=== PATIENT | female | born 1960 | race Caucasian/White ===

== ENCOUNTER 2020-09-23 11:31 | Outpatient (REF) | payer OTHER, SELFPAY ==
--- NOTE | 2020-09-23 11:35 | MM_ITS ---
EXAMINATION: MM DIAGNOSTIC DIGITAL BREAST TOMOSYNTHESIS, RIGHT CLINICAL INFORMATION: Short interval six-month follow-up probable benign round calcifications mid outer right breast. The lifetime risk of breast cancer based on the Tyrer-Cuzick Model is 7%. COMPARISON: Mammography: 03/25/2020, 03/06/2020 (BI-RADS 0), 10/21/2018, 10/15/2017, 03/19/2016 TECHNIQUE: Digital breast tomosynthesis is performed in the craniocaudal view x 2 along with computer-aided detection (CAD). Synthesized 2D images are generated from the tomosynthesis. Digital breast tomosynthesis is performed in the right MLO view. Magnification views are obtained in the CC and ML views. FINDINGS: There are scattered areas of fibroglandular density (ACR BI-RADS breast composition Category b). Parenchymal pattern is similar to prior exams. There is no interval mass or architectural abnormality. Fine calcifications for follow-up mid outer right breast are stable from prior diagnostic exam and likely stable from standard right MLO view from 2015. Right breast calcifications will be reassessed again at time of annual bilateral mammography, due in 6 months. Results are provided to the patient at time of visit by the technologist. MM/MM tomosynthesis diagnostic RT IMPRESSION: Right breast calcifications mid outer quadrant without significant change from prior diagnostic exam, and possibly chronic. ASSESSMENT: BI-RADS 3: Probably Benign RECOMMENDATION: Diagnostic mammography at time of bilateral annual mammography, due in 6 months. This patient's information was entered into a reminder system with a target due date for their next mammogram.
== END 2020-09-23 11:32 | disposition home or self-care (01) ==
LOC: HO.MAMMO 11:31
PROVIDERS: PCP Internal Medicine; Visit Provider Internal Medicine
DX: R92.1 Mammographic calcification found on diagnostic imaging of breast (principal)
CPT/HCPCS: 77061; 77065

== ENCOUNTER 2020-11-07 15:04 | Outpatient (REF) | payer OTHER, SELFPAY | END 2020-11-07 15:05 | disposition home or self-care (01) | LOC: HO.LNP 15:04 | PROVIDERS: Visit Provider Hospitalist | DX: R31.0 Gross hematuria (principal) | CPT/HCPCS: 87086; 87491; 87591 ==

== ENCOUNTER 2021-03-10 15:01 | Outpatient (REF) | payer OTHER, SELFPAY ==
--- NOTE | ~2021-03-10 | MM_ITS ---
EXAMINATION: MM DIAGNOSTIC DIGITAL BREAST TOMOSYNTHESIS, BILATERAL CLINICAL INFORMATION: Six-month follow-up right breast calcifications with yearly left breast study. The lifetime risk of breast cancer based on the Tyrer-Cuzick Model is 6.6%. COMPARISON: Mammography: September 23, 2020 and studies dating back to February 19, 2012 TECHNIQUE: Digital breast tomosynthesis is performed in both the craniocaudal and mediolateral oblique views along with computer-aided detection (CAD). Synthesized 2D images are generated from the tomosynthesis. Additional spot magnification films of the right breast in craniocaudal and 90 degree mediolateral views performed. FINDINGS: There are scattered areas of fibroglandular density (ACR BI-RADS breast composition Category b). No new abnormal dominant mass is identified. No new more suspicious grouping of microcalcifications is identified. There are stable-appearing calcifications about the upper outer aspect of the right breast for which 12 month follow-up bilateral study with right magnification views are recommended. Results are provided to the patient at time of visit by the technologist. MM/MM tomosynthesis diagnostic RT IMPRESSION: There are no significant changes from prior study. ASSESSMENT: BI-RADS 3: Probably Benign RECOMMENDATION: Diagnostic mammography at time of next annual exam, due in 12 months. This patient's information was entered into a reminder system with a target due date for their next mammogram.
== END 2021-03-10 15:02 | disposition home or self-care (01) ==
LOC: HO.MAMMO 15:01
PROVIDERS: Visit Provider Internal Medicine
DX: R92.1 Mammographic calcification found on diagnostic imaging of breast (principal)
CPT/HCPCS: 77061; 77065

== ENCOUNTER 2021-05-28 14:42 | Outpatient (REF) | payer OTHER, SELFPAY | END 2021-05-28 14:43 | disposition home or self-care (01) | LOC: HO.LAB 14:42 | PROVIDERS: Visit Provider Internal Medicine | DX: Z20.822 Contact with and (suspected) exposure to COVID-19 (principal) | CPT/HCPCS: C9803; U0003; U0005 ==

== ENCOUNTER 2021-07-14 08:57 | Outpatient (REF) | payer OTHER, SELFPAY | END 2021-07-14 08:58 | disposition home or self-care (01) | LOC: HO.LAB 08:57 | PROVIDERS: Visit Provider Internal Medicine | DX: Z20.822 Contact with and (suspected) exposure to COVID-19 (principal) | CPT/HCPCS: C9803; U0003; U0005 ==

== ENCOUNTER → 2021-09-10 09:08 | Outpatient (REF) | payer OTHER, SELFPAY | LOC: HO.SL 09:08 | PROVIDERS: PCP Internal Medicine; Visit Provider Internal Medicine | DX: G47.9 Sleep disorder, unspecified (principal); R06.83 Snoring | CPT/HCPCS: 95806 ==

== ENCOUNTER → 2021-11-04 09:48 | Outpatient (BNVA) | payer OTHER, SELFPAY | PROVIDERS: PCP Internal Medicine; Referring Provider Internal Medicine; Visit Provider Psychiatry & Neurology Neurology ==

== ENCOUNTER 2022-03-09 12:12 | Outpatient (REF) | payer OTHER, SELFPAY ==
--- NOTE | ~2022-03-09 | MM_ITS ---
EXAMINATION: MM DIAGNOSTIC DIGITAL BREAST TOMOSYNTHESIS, BILATERAL CLINICAL INFORMATION: Due for yearly. Also follow-up probable fine round benign calcifications central outer 9:00 right breast The lifetime risk of breast cancer based on the Tyrer-Cuzick Model is 9%. COMPARISON: Mammography: 03/10/2021, 09/23/2020, 03/25/2020, 03/06/2020 (BI-RADS 0), 10/21/2018 TECHNIQUE: Digital breast tomosynthesis is performed in both the craniocaudal and mediolateral oblique views along with computer-aided detection (CAD). Synthesized 2D images are generated from the tomosynthesis. Additional magnification right CC and magnification right ML views are obtained. FINDINGS: There are scattered areas of fibroglandular density (ACR BI-RADS breast composition Category b). Parenchymal pattern is similar to prior exams and there is no interval mass or architectural abnormality or developing density. There is biopsy clip marker again seen anterior upper left breast with some stable punctate calcifications mid and posterior upper outer left breast. There is a biopsy clip marker anterior lower inner right breast. The axilla and skin contours are unremarkable. Right breast calcifications for follow-up are stable from prior diagnostic studies. No increasing calcifications or interval pleomorphic types or ductal distribution. The calcifications are now considered to be benign. Results are provided to the patient at time of visit by the technologist. MM/MM tomosynthesis diagnostic BI IMPRESSION: -No mammographic evidence of malignancy. -Right breast calcifications for follow-up are stable from prior diagnostic exams and now considered to be benign. ASSESSMENT: BI-RADS 2: Benign RECOMMENDATION: Routine annual mammography screening. This patient's information was entered into a reminder system with a target due date for their next mammogram.
== END 2022-03-09 12:13 | disposition home or self-care (01) ==
LOC: HO.MAMMO 12:12
PROVIDERS: Visit Provider Internal Medicine
DX: R92.2 Inconclusive mammogram (principal)
CPT/HCPCS: 77062; 77066

== ENCOUNTER 2022-08-05 10:01 | Outpatient (REF) | payer OTHER, SELFPAY ==
--- NOTE | ~2022-08-05 | XR_ITS ---
EXAMINATION: XR FOOT, RIGHT CLINICAL INFORMATION: Pain. COMPARISON: None TECHNIQUE: AP, lateral, and oblique views of the right foot. FINDINGS: There is no visible acute fracture, dislocation or subluxation. No bony erosive changes. There is a small retrocalcaneal enthesophyte. The soft tissues are normal. XR/XR foot RT min 3V IMPRESSION: Small retrocalcaneal enthesophyte. No visible acute fracture, dislocation or subluxation is seen.
== END 2022-08-05 10:02 | disposition home or self-care (01) ==
LOC: HO.XRAY 10:01
PROVIDERS: PCP Internal Medicine; Visit Provider Nurse Practitioner Family
DX: M79.671 Pain in right foot (principal)
CPT/HCPCS: 73630

== ENCOUNTER 2023-02-01 09:08 | Outpatient (REF) | payer OTHER, SELFPAY ==
--- NOTE | ~2023-02-01 | XR_ITS ---
EXAMINATION: XR FOOT, RIGHT CLINICAL INFORMATION: Right foot pain. COMPARISON: 08/05/2022 right foot radiographs. TECHNIQUE: AP, lateral, and oblique views of the right foot. FINDINGS: There is no acute fracture or dislocation. The tarsal bones are normally aligned. There is a small retrocalcaneal spur with mild distal Achilles enthesopathy. The soft tissues are unremarkable. XR/XR foot RT 2V IMPRESSION: Small degenerative retrocalcaneal spur and mild distal Achilles enthesopathy. No acute abnormality.
== END 2023-02-01 09:09 | disposition home or self-care (01) ==
LOC: HO.XRAY 09:08
PROVIDERS: PCP Internal Medicine; Visit Provider Internal Medicine
DX: M79.671 Pain in right foot (principal)
CPT/HCPCS: 73620

== ENCOUNTER 2023-06-29 09:59 | Outpatient (AMB) | payer OTHER, SELFPAY ==
--- NOTE | 2023-06-29 10:44 | AM.OFFWIN_ITS ---
Intake Vital Signs 06/29/23 10:45 Height 5 ft Weight 126 lb 2 oz BMI 24.6 BP 138/78 Blood Pressure Location Lt brachial Position Sitting Pulse 78 Pulse Source Pulse Oximeter Temp 98.6 F Temp Source Temporal Artery Scan Pulse Oximetry (%) 97 Intake Visit Reasons: EP Cough (masked) Intake Note: pt is here for c/o cough 3x weeks, chest congestion Patient Tobacco Use Status: Former Tobacco user Allergies codeine Allergy (Unknown, Verified 06/29/23 10:44) vomitting Do you need a note to return to daycare/school/sports/work: Yes HPI HPI Comments History of Present Illness Details This is a 63-year-old female with a past medical history of migraine headaches presenting for evaluation of a cough that she has had for the past 3 weeks. Patient states that her cough is dry and worse at night time. Patient denies having any fevers, chills, ear pain, sore throat, shortness of breath or chest pain. Patient tested herself for COVID-19 at home and the test was negative. Patient has been taking TheraFlu without relief of her cough. [facility] Medical History Sleep disturbance Snoring Immunization history incomplete Physical exam Insomnia Restless leg syndrome Migraines Surgical History H/O: No pertinent past surgical history Family History Father Diabetes Mother Diabetes Hypertension Brother In good health Sister In good health Son In good health Daughter In good health Social History Household Members: Significant Other Housing: House Alcohol intake: current Alcohol intake frequency: holidays/special occasions only Patient Tobacco Use Status: Former Tobacco user e-Cigarette/Vaping Use: Never Used Second Hand Smoke Exposure: No service: No Current occupational status: 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: No Hearing needs: No Vision needs: No Review of Systems Const Denies chills, Denies fatigue, Denies fever(s), Denies malaise and Denies night sweats Eyes Reports no additional complaints ENT Reports no additional complaints, Denies facial pain, Denies sinus pressure, De nies sore throat, Denies throat swelling and Denies tongue swelling Card Denies dyspnea Resp Reports no additional complaints, Reports cough, Denies hemoptysis, Denies dyspnea and Denies wheezing Endo Denies fatigue Aller/Immun Denies throat swelling, Denies tongue swelling and Denies wheezing Physical Exam Vital Signs: Last Vital Signs Temp 98.6 F 06/29/23 10:45 Pulse 78 06/29/23 10:45 BP 138/78 06/29/23 10:45 Pulse Ox 97 06/29/23 10:45 BMI result Body Mass Index 24.6 Const General: cooperative, healthy appearing, comfortable, no acute distress, awake and Physically active; No ill appearing Nutritional Appearance: average body habitus Orientation/consciousness: patient oriented x3 Limitations: no limitations HEENT Head: Yes normal to inspection Ears: hearing grossly normal bilaterally and TM abnormal bulging bilateral; not erythematous and not perforated General nose exam: Normal external nose present Face and sinus: Yes normal facial exam Mouth: Normal oral and palatal mucosa present and oropharynx normal Throat: Yes uvula midline and Yes postnasal drainage Eyes Conjunctivae: conjunctival abnormal bilateral conjunctival injection Sclerae: sclerae normal Neck Lymphatic: no lymphadenopathy noted Resp Effort & Inspection: normal respiratory effort, no audible wheezes, no cough, no respiratory distress and no stridor Auscultation: clear to auscultation bilaterally Cardio Rate: regular rate Rhythm: regular rhythm Skin General skin exam: no rashes or lesions noted Neuro General: patient oriented x3 Psych Appearance: grossly normal Mental Status: mental status grossly normal Insight: Good insight present (Psych) Judgement: Good judgement present (Psych) Assessment & Plan Assessment & Plan (1) Persistent dry cough: Code(s): R05.3 - Chronic cough Plan: Given that the patient's lungs are clear to auscultation bilaterally and the patient's vital signs are within normal limits, I do not feel that chest imaging is warranted at this time. Patient will be discharged and instructed to use loratadine once daily for the next 10-14 days for her symptoms and follow up with her primary care provider within 7 days if her symptoms are not improving. Coding Level of Care Code New Pt Level 3 (88240) Diagnoses Persistent dry cough R05.3 Time Spent (min) 20
[2023-06-29 10:45] VITALS: BP 138/78; PULSE 78; TEMP 37; O2SAT 97; BMI 24.6
== END 2023-06-29 11:26 | disposition home or self-care (01) ==
PROVIDERS: PCP Internal Medicine; Visit Provider Physician Assistant
DX: R05.3 Chronic cough (principal)
CPT/HCPCS: 99203

== ENCOUNTER 2023-08-02 16:46 | Outpatient (AMB) | payer OTHER, SELFPAY ==
[2023-08-02 16:55] VITALS: BP 114/82; BMI 24.6
--- NOTE | 2023-08-02 16:55 | A.OFFPC_ITS ---
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 Accompanied by: Self / Same As Patient Allergies codeine Allergy (Unknown, Verified 08/02/23 17:25) vomitting Medication List - Last Reconciled 08/02/23 by Nargis Sebastian MD acetaminophen ER 650 mg PO Q8H PRN amitriptyline 25 mg PO BEDTIME [id number] 50-325-40 mg 1 tab PO Q6H PRN 30 days ropinirole 0.5 mg PO BEDTIME Tobacco use date assessed: 02/01/23 Dental Screening Dental Screen Date: 08/02/23 Did you have a dental visit in the last 12 months?: Yes Did you have a dental problem in the last 6 months where you did not have access to dental care?: No Was dental information given to patient?: Patient has dentist HPI HPI Comments History of Present Illness Details This is a 63-year-old female that comes for her physical exam. Last colonoscopy was 2010 and will be refer through open access. Was referred to OBGYN for Pap smears since last Pap smear was 2013. Needs a mammogram and will call for an appointment. No chest pain or shortness of breath. PFSH Medical History Sleep disturbance Snoring Immunization history incomplete Physical exam Insomnia Restless leg syndrome Migraines Surgical History (Updated 08/02/23 @ 17:29 by Nargis Sebastian MD) H/O abdominoplasty H/O: Family History (Updated 08/02/23 @ 17:30 by Nargis Sebastian MD) Father Diabetes Mother Diabetes Hypertension Dementia Brother In good health Sister In good health Son In good health Daughter In good health Social History Household Members: Significant Other Housing: House Alcohol intake: current Alcohol intake frequency: holidays/special occasions only Patient Tobacco Use Status: Former Tobacco user e-Cigarette/Vaping Use: Never Used Second Hand Smoke Exposure: No service: No Current occupational status: 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: No Hearing needs: No Vision needs: No Questionnaire Thrive Questionnaire Date Thrive assessed: 08/05/22 FRANCO-7 AMB Questionnaire FRANCO-7 Date FRANCO - 7 assessed: 02/01/23 Source: Developed by Drs. Enrrique Godinez, Lisbeth Dai, Matias Arciniega and colleagues, with an educational cande from [employer]. Review of Systems Const All systems reviewed & are unremarkable except as noted in HPI and below Eyes Reports no additional complaints, Denies change in vision and Denies other visual disturbances Card Denies chest pain at rest, Denies chest pain with activity, Denies edema, Denies irregular heart rhythm, Denies claudication, Denies dyspnea, Denies dyspnea on exertion, Denies orthopnea, Denies paroxysmal nocturnal dyspnea and Denies slow heart rate Resp Denies cough, Denies dyspnea and Denies dyspnea on exertion GI Denies abdominal pain, Denies change in bowel habits, Denies excessive flatus, Denies nausea and Denies vomiting Denies urinary incontinence, Denies urinary hesitancy and Denies urinary urgency Musc Denies abnormal gait, Denies atrophy, Denies deformity and Denies limited range of motion Skin/Breast Denies bleeding lesions, Denies changing lesions and Denies rash Neuro Denies abnormal gait and Denies lack of coordination Physical exam (Primary Care) Vital Signs: Last Vital Signs BP 114/82 08/02/23 16:55 BMI result Body Mass Index 24.6 Tobacco/Smoking Status: Tobacco use Status Tobacco use date assessed 02/01/23 08/02/23 17:02 Patient Tobacco Use Status Former Tobacco user 08/02/23 17:02 e-Cigarette/Vaping Use Never Used 08/02/23 17:02 Thrive Assessment: Date of Thrive Assessment Date Thrive assessed 08/05/22 08/02/23 17:02 Const Orientation/consciousness: patient oriented x3 HENMT Head: Yes normal to inspection, Yes normocephalic and Yes atraumatic Ears: external ears normal Eyes General: appearance normal, both eyes and all related structures Eyelids: Yes eyelids normal Conjunctivae: conjunctivae normal Neck Neck: Yes normal visual inspection and Yes supple Resp Effort & Inspection: normal respiratory effort Auscultation: clear to auscultation bilaterally Cardio Jugular venous distension: no JVD Rate: regular rate Rhythm: regular rhythm Heart sounds: S1 normal heart sound present and S2 normal heart sound present GI Inspection: Yes normal to inspection Palpation (GI): Soft to palpation and nontender Auscultation: normal bowel sounds Skin General skin exam: no rashes or lesions noted Neuro General: patient oriented x3 and no focal motor deficits Extrem General: Yes full ROM Psych Appearance: grossly normal Office Procedures Flu Questionnaire Does the patient have a severe egg allergy?: No Immunizations flu vacc [id number] 6mos up(PF) 60 mcg(15 mcgx4)/0.5 mL IM syringe Performing Provider: Nargis Sebastian MD Performing Location: [facility] Documented (not given) by: ERIC Hernandez on 08/02/23 17:39 Reason Not Given: Patient Refused Assessment and Plan Assessment & Plan (1) Physical exam: Code(s): Z00.00 - Encounter for general adult medical examination without abnormal findings Plan: Repeat in a year. Orders: Orders Lipid Panel Today Z00.00 - Encounter for general adult medical examination wi thout abnormal findings Comprehensive [place]. Panel Fast Today Z00.00 - Encounter for general adult medical examination without abnormal findings Influenza [id number] Immunization Today Z23 - Encounter for immunization Referrals Open Access Screening Colonoscopy Referral Z12.11 - Encounter for screening for malignant neoplasm of colon Coding Level of Care Code Est Pt Prev Care 40-64y(82112) Diagnoses Physical exam Z00.00 Time Spent (min) 31
== END 2023-08-02 17:35 | disposition home or self-care (01) ==
PROVIDERS: Visit Provider Internal Medicine
DX: Z00.00 Encounter for general adult medical examination without abnormal findings (principal)
CPT/HCPCS: 99396

== ENCOUNTER 2023-08-20 07:18 | Outpatient (REF) | payer OTHER, SELFPAY ==
[2023-08-20 08:40] LABS: Alanine Aminotransferase 18 U/L (0-31); Alkaline Phosphatase 128 U/L (39-117); Anion Gap 10 (12-20); Aspartate Amino Transferase 16 U/L (5-31); Bilirubin Total 0.3 mg/dL (0.0-1.0); Blood Urea Nitrogen 20 mg/dL (9-16); Calcium 9.4 mg/dL (8.4-10.2); Carbon Dioxide 28 mmol/L (22-29); Chloride 109 mmol/L (96-108); Cholesterol 221 mg/dL (<200); Estimated Glomerular Filt Rate > 60; Glucose Fasting 97 mg/dL (60-99); HDL Cholesterol 61 mg/dL (>40); LDL Cholesterol Calculated 140 mg/dL (<100); Potassium 4.3 mmol/L (3.3-5.1); Sodium 143 mmol/L (135-145); Total Protein 7.4 g/dL (6.5-8.0); Triglycerides 102 mg/dL (<150)
== END 2023-08-20 07:19 | disposition home or self-care (01) ==
LOC: HO.LAB 07:18
PROVIDERS: PCP Internal Medicine; Visit Provider Internal Medicine
DX: Z00.00 Encounter for general adult medical examination without abnormal findings (principal)
CPT/HCPCS: 36415; 80053; 80061

== ENCOUNTER 2023-11-05 08:21 | Outpatient (REF) | payer OTHER, SELFPAY ==
[2023-11-05 10:56] LABS: HBc Num1 0.08 S/CO (0.00-0.79); HIV Num 1 0.07 S/CO (0.00-0.99); Hepatitis B Core Antibody Nonreactive (Nonreactive); ~HepC Num1 0.09 S/CO (0.00-0.79); ~Hepatitis C Antibody Nonreactive (Nonreactive)
[2023-11-05 10:57] LABS: HIV AB/AG Nonreactive (Nonreactive); Syphilis Screen Nonreactive (Nonreactive)
== END 2023-11-05 08:22 | disposition home or self-care (01) ==
LOC: HO.LAB 08:21
PROVIDERS: PCP Internal Medicine; Visit Provider Advanced Practice Midwife
DX: Z01.419 Encounter for gynecological examination (general) (routine) without abnormal findings (principal); Z11.4 Encounter for screening for human immunodeficiency virus [HIV]; Z20.2 Contact with and (suspected) exposure to infections with a predominantly sexual mode of transmission
CPT/HCPCS: 36415; 86704; 86780; 86803; 87389

== ENCOUNTER 2023-11-05 08:21 | Outpatient (AMB) | payer OTHER, SELFPAY ==
--- NOTE | 2023-11-05 08:23 | A.OFFVIS_ITS ---
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 She is doing well with no concerns. Attempting to eat a healthy diet with calcium and vitamin D, and does not exercise. Currently not sexually active. Denies any vaginal dryness or irritation. STI testing offered; she accepts. Last pap smear; unknown. Last mammogram; 2021. Colonoscopy is UTD. Denies any family history of ovarian or colon cancer. Family history maternal and paternal cousins for breast cancer. PFSH Medical History Sleep disturbance Snoring Immunization history incomplete Physical exam Insomnia Restless leg syndrome Migraines Surgical History H/O abdominoplasty H/O: Family History Father Diabetes Mother Diabetes Hypertension Dementia Brother In good health Sister In good health Son In good health Daughter In good health Social History Household Members: Significant Other Housing: House Alcohol intake: current Alcohol intake frequency: holidays/special occasions only Patient Tobacco Use Status: Former Tobacco user e-Cigarette/Vaping Use: Never Used Second Hand Smoke Exposure: No service: No Current occupational status: 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: No Hearing needs: No Vision needs: No Female Reproductive History Menstrual Menopause type: natural Total pregnancies: 2 Full term: 2 Number of Living Children: 2 Date of Mammogram: 03/09/22 Review of Systems Const All systems reviewed & are unremarkable except as noted in HPI and below Reports as per HPI Eyes Reports no additional complaints ENT Reports no additional complaints Card Reports no additional complaints Resp Reports no additional complaints GI Reports as per HPI and Reports no additional complaints Reports as per HPI Musc Reports no additional complaints Skin/Breast Reports as per HPI Neuro Reports no additional complaints Psych Reports no additional complaints Endo Reports no additional complaints Luís/Lymph Reports no additional complaints Aller/Immun Reports no additional complaints Physical Exam Vital Signs: Last Vital Signs BP 116/70 11/05/23 08:25 BMI result Body Mass Index 24.4 Const General: cooperative, healthy appearing, no acute distress, well developed and alert Orientation/consciousness: patient oriented x3 HEENT Head: Yes normal to inspection Eyes General: appearance normal, both eyes and all related structures Neck Neck: Yes normal visual inspection Thyroid: Thyroid normal Chest Chest palpation & inspection: normal inspection of the chest and other (no puckering, dimpling, peau de orange, retraction, discharge, masses) Breast/axilla inspection: normal inspection of the breasts Breast/axilla palpation: normal palpation of the breasts Resp Effort & Inspection: normal respiratory effort GI Inspection: Yes normal to inspection and Yes scar Palpation (GI): Soft to palpation Rectal Exam - Female: deferred General: Yes bladder normal to palpation External Female Exam: normal external appearance and normal appearance of the urethra Speculum Exam - Vagina: normal appearance of the vagina, normal palpation, normal vaginal discharge and vagina atrophic Speculum Exam - Cervix: normal appearance of the cervix and normal palpation Bimanual exam- vagina & uterus: normal bimanual exam, normal palpation, uterine size normal, bladder normal to palpation, normal palpation and non-tender Bimanual Exam- Adnexa, other: no masses Skin General skin exam: no rashes or lesions noted Rashes: no rashes Neuro General: patient oriented x3 Cognition (Neuro): normal cognition Extrem General: Yes normal to inspection Psych Attitude: cooperative Thought process: Normal thought process present Assessment & Plan Assessment & Plan (1) Encounter for well woman exam with routine gynecological exam: Code(s): Z01.419 - Encounter for gynecological examination (general) (routine) without abnormal findings Plan Discussed: Current recommendations for pap smears per ASCCP guidelines. Breast awareness, periodic self breast exams and yearly mammogram. Maintain a healthy lifestyle, well balanced diet including Calcium 1,200 mg and Vitamin D 600 IU daily, and routine exercise. Use of condoms for STI if indicated. Contact the office with any postmenopausal bleeding. Patient verbalizes understanding and agrees to the plan of care. She was given opportunity to ask questions and all questions were answered to the best of my ability. RTO in 1 year for annual rotary shear cutter exam. This note is constructed using voice recognition software. While every effort has been made to ensure accuracy, conveyor monitor errors may have been included. Orders: Orders MM tomosynthesis screening BI Today Z12.31 - Encounter for screening mammogram for malignant neoplasm of breast HIV Ab/Ag Today Z20.2 - Contact with and (suspected) exposure to infections with a predominantly sexual mode of transmission Hepatitis C Antibody Reflex Today Z20.2 - Contact with and (suspected) exposure to infections with a predominantly sexual mode of transmission Hepatitis B Core Antibody Today Z20.2 - Contact with and (suspected) exposure to infections with a predominantly sexual mode of transmission Syphilis Screen Today Z20.2 - Contact with and (suspected) exposure to infections with a predominantly sexual mode of transmission Coding Level of Care Code New Pt Prev Care 40-64y(12030) Diagnoses Encounter for well woman exam with routine gynecological exam Z01.419
[2023-11-05 08:25] VITALS: BP 116/70; BMI 24.4
== END 2023-11-05 09:04 | disposition home or self-care (01) ==
LOC: HO.HWS 08:22
PROVIDERS: PCP Internal Medicine; Visit Provider Advanced Practice Midwife
DX: Z01.419 Encounter for gynecological examination (general) (routine) without abnormal findings (principal)
CPT/HCPCS: 99386

== ENCOUNTER 2023-11-05 09:31 | Outpatient (REF) | payer OTHER, SELFPAY ==
[2023-11-05 12:17] LABS: CT PCR NOT DETECTED (Not Detect.); NG PCR NOT DETECTED (Not Detect.)
[2023-11-10 20:19] LABS: HPV mRNA E6/E7 rflx Not Detected (Not Detected)
== END 2023-11-05 09:32 | disposition home or self-care (01) ==
LOC: HO.LNP 09:31
PROVIDERS: Visit Provider Advanced Practice Midwife
DX: Z01.419 Encounter for gynecological examination (general) (routine) without abnormal findings (principal); Z11.51 Encounter for screening for human papillomavirus (HPV); Z20.2 Contact with and (suspected) exposure to infections with a predominantly sexual mode of transmission
CPT/HCPCS: 0353U; 87624; 88142

== ENCOUNTER 2023-12-21 07:26 | Outpatient (REF) | payer OTHER, SELFPAY ==
--- NOTE | ~2023-12-21 | MM_ITS ---
EXAMINATION: MM SCREENING DIGITAL BREAST TOMOSYNTHESIS, BILATERAL CLINICAL INFORMATION: Screening. Asymptomatic. COMPARISON: Mammography: This study is compared with prior exams dating back to 2018. TECHNIQUE: Digital breast tomosynthesis is performed in both the craniocaudal and mediolateral oblique views along with computer-aided detection (CAD). Synthesized 2D images are generated from the tomosynthesis. FINDINGS: There are scattered areas of fibroglandular density (ACR BI-RADS breast composition Category b). There are no significant masses, abnormal calcifications, or other abnormalities. There is a biopsy tissue marker in each breast from prior benign percutaneous biopsy. MM/MM tomosynthesis screening BI IMPRESSION: No mammographic evidence of malignancy. ASSESSMENT: BI-RADS BI-RADS 2 - Benign Findings RECOMMENDATION: Routine annual mammography screening. 1 year F/U This examination should not preclude the clinical evaluation of a suspicious palpable abnormality. This patient's information was entered into a reminder system with a target due date for their next mammogram.
== END 2023-12-21 07:27 | disposition home or self-care (01) ==
LOC: HO.MAMMO 07:26
PROVIDERS: PCP Internal Medicine; Visit Provider Advanced Practice Midwife
DX: Z12.31 Encounter for screening mammogram for malignant neoplasm of breast (principal)
CPT/HCPCS: 77063; 77067

== ENCOUNTER → 2023-12-21 07:31 | Outpatient (BNV) | payer OTHER, SELFPAY | PROVIDERS: PCP Internal Medicine; Visit Provider Radiology Diagnostic Radiology | DX: Z12.31 Encounter for screening mammogram for malignant neoplasm of breast (principal) | CPT/HCPCS: 77063; 77067 ==

== ENCOUNTER 2024-04-18 07:59 | Day surgery (SDC) | payer OTHER, SELFPAY ==
[2024-04-18 06:14] VITALS: BMI 24.5
[2024-04-18 09:07] VITALS: BP 121/86; PULSE 78; RESP 20; TEMP 36.9; O2SAT 96
[2024-04-18] MEDS: Lactated Ringers 1,000 ML 100 ML IVCONT (09:17)
--- NOTE | 2024-04-18 09:23 | MHC.SHP ---
Pre-Procedural Eval Section A - 24 Hr Update-Section A only Date of Service: 04/18/24 Section B - Complete if H&P > 30 days Chief Complaint: Encounter for screening for malignant neoplasm of Relevant Family History (Specify if Yes): No Relevant Social History: None Present Medications: see Short Stay Collaborative assessment Medical History: Significant History (Snoring Immunization history incomplete Physical exam Insomnia Restless leg syndrome Migraines) History of Previous Operations: Relevant previous surgery/procedure and date(s) (H/O abdominoplasty H/O: ) Allergies: Allergies Allergy/AdvReac Type Severity Reaction Status Date / Time codeine Allergy Unknown vomitting Verified 11/05/23 08:35 Review of Systems Sugical H&P ROS: Negative: Constitution, Cardiovascular, Respiratory, Neurological, Psychiatric, Hem-Onc, Allergic/Immunologic, Gastrointestinal, Genitourinary, Musculoskeletal, Integumentary, Endocrine and Eyes/Ears/Nose/Throat Exam Surgical H&P Exam: Normal: HEENT, Normal: Heart, Normal: Lungs, Normal: Extremities, Normal: Abdomen, Normal: Skin and Normal: Neurological Plan Diagnosis/Plan: Unchanged I have reviewed the history and physical and performed a pertinent physical examination on my patient. No changes have occurred unless specified. Time Spent With Patient Time: Total time managing care of this patient today ____ minutes.
--- NOTE | 2024-04-18 09:50 | HO.ANESPROP2 ---
Documented by User: Ban Hernandez NP 04/17/24 08:24 HPI - Anesthesia Eval Consult details Narrative: 63yo F for Colonoscopy PMFSH Active Problems Active Problems: All Active Problems Persistent dry cough (Acute) Screening for cervical cancer (Acute) Right foot pain (Acute) Sleep disturbance (Acute) Snoring (Acute) Immunization history incomplete (Acute) Physical exam (Acute) Hematuria (Acute) Insomnia (Acute) Restless leg syndrome (Acute) Migraines (Acute) Past Medical History Medical History Sleep disturbance Snoring Immunization history incomplete Physical exam Insomnia Restless leg syndrome Migraines Family History Family History Father Diabetes Mother Diabetes Hypertension Dementia Brother In good health Sister In good health Son In good health Daughter In good health Surgical History Surgical History H/O abdominoplasty H/O: Social History Social History Household Members: Significant Other Housing: House Alcohol intake: current Alcohol intake frequency: does not drink Patient Tobacco Use Status: Former Tobacco user e-Cigarette/Vaping Use: Never Used Second Hand Smoke Exposure: No Are you DNR?: No Advance Directives: No Advance Directives Information Provided: Yes Patient : Yes service: No Current occupational status: 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: No Hearing needs: No Vision needs: No Meds Allergies Allergy/AdvReac Type Severity Reaction Status Date / Time codeine Allergy Unknown vomitting Verified 11/05/23 08:35 Assessment and Plan Assessment Anesthesia Assessment: Chart Reviewed Documented by User: Maddie Verma DO 04/18/24 09:54 PMFSH Past Medical History Medical History Sleep disturbance Snoring Immunization history incomplete Physical exam Insomnia Restless leg syndrome Migraines Family History Family History Father Diabetes Mother Diabetes Hypertension Dementia Brother In good health Sister In good health Son In good health Daughter In good health Family history of problems with anesthesia: No Surgical History Surgical History H/O abdominoplasty H/O: History of Problems with Anesthesia: No Social History Social History Household Members: Significant Other Housing: House Alcohol intake: current Alcohol intake frequency: does not drink Patient Tobacco Use Status: Former Tobacco user e-Cigarette/Vaping Use: Never Used Second Hand Smoke Exposure: No Are you DNR?: No Advance Directives: No Advance Directives Information Provided: Yes Patient : Yes service: No Current occupational status: 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: No Hearing needs: No Vision needs: No Meds Allergies Allergy/AdvReac Type Severity Reaction Status Date / Time codeine Allergy Unknown vomitting Verified 11/05/23 08:35 Exam Exam Date and Time: April 18, 2024 0951 Height,Weight and Vital Signs: Height 5 ft Weight 56.971 kg Vital Signs Temperature 98.4 F 04/18/24 09:07 Pulse Rate 78 04/18/24 09:07 Respiratory Rate 20 04/18/24 09:07 Blood Pressure 121/86 04/18/24 09:07 Pulse Oximetry 96 04/18/24 09:07 Oxygen Delivery Method Room Air 04/18/24 09:07 Temperature 98.4 F 04/18/24 09:07 Pulse Rate 78 04/18/24 09:07 Respiratory Rate 20 04/18/24 09:07 Blood Pressure 121/86 04/18/24 09:07 Pulse Oximetry 96 04/18/24 09:07 Oxygen Delivery Method Room Air 04/18/24 09:07 Airway Mallampati Class: I TM Dist: >3cm Neck ROM: Full Loose/Missing/Broken Teeth: No (patient denies any loose or broken teeth) Heart: S1S2 Lungs: CTAB Assessment and Plan Assessment Anesthesia Assessment: Anesthesia Plan Discussed and Chart Reviewed Final Anesthetic Review Family History of Problems with Anesthesia: No History of Problems with Anesthesia: No NPO: Yes ASA Class: II Final Preanesthetic Review: No Changes in Pt Med Stat, Meds/Allgs Chart Reviewed, Consent Obtained/Reviewed and Anes Risks/Benef Reviewed Patient Risk: Low Procedure Risk: Low Anesthetic Plan Anesthetic Plan: MAC: and Agree w/ Assess. and Plan Disposition: Standard PACU
--- NOTE | 2024-04-18 10:19 | P.OPN-COLO_ITS ---
Colonoscopy Operative Note Operative Note Date of Service: 04/18/24 Narrative: Operative Information Procedure Description: Colonoscopy Indication: Screening Anesthesia: MAC COLONOSCOPY Instrument: Olympus variable stiffness pediatric scope 190L Colonoscopy Monitoring: Vital signs and clinical assessment, continuous EKG monitoring, Pulse oximetry, Carbon Dioxide monitoring and blood pressure monitoring were done throughout the procedure. Colon withdrawal time was 11 minutes. Procedure: The patient was placed in the left lateral decubitis position and pre-procedure medications were administered. After a digital rectal examination of the ano-rectum, the video colonoscope was inserted into the rectum and advanced through the colon to the cecum/TI. The colonoscope was slowly withdrawn in a retrograde panoramic fashion and the colon mucosa was carefully examined including a retroflexed view of the rectum. Findings and interventions are described below. Procedure Difficulty: easy Findings: Terminal Ileum-normal Cecum:normal Ascending Colon: normal Transverse Colon -normal Descending Colon:normal Sigmoid Colon: 8-10 mm sessile polyp removed with cold snare Rectum: Retroflexion with small internal hemorrhoids seen, grade I Anorectum - normal Intervention: cold snare Colon preparation: [place] Bowel Preparation Scale Right colon; 2 Transverse colon: 2 Left colon; 3 (0 = Unprepared colon segment with mucosa not seen due to solid stool that can not be cleared. 1 = Portion of mucosa of the colon segment seen, but other areas of the colon segment not well seen due to staining, residual stool and/or opaque liquid. 2 = Minor amount of residual staining, small fragments of stool and/or opaque liquid, but mucosa of colon segment seen well. 3 = Entire mucosa of colon segment seen well with no residual staining, small fragments of stool or opaque liquid) Impression and Post Procedure Diagnosis: colon polyp internal hemorrhoids Plan: High fiber diet leaflet Avoid straining at stool, epsom salts and sitz bath, anusol supps or cream Repeat Colonoscopy in 5-7 years if adenomatous polyp, 10 yrs if hyperplastic or earlier if clinically indicated Above findings were reviewed with the patient and relevant handouts were provided if indicated.
[2024-04-18 10:21] VITALS: BP 128/80; PULSE 70; RESP 16; TEMP 36.2; O2SAT 97
[2024-04-18 10:26] VITALS: BP 119/76; PULSE 67; RESP 16; O2SAT 98
[2024-04-18 10:31] VITALS: BP 120/80; PULSE 66; RESP 15; O2SAT 97
[2024-04-18 10:36] VITALS: BP 123/86; PULSE 79; RESP 16; O2SAT 98
[2024-04-18 10:51] VITALS: BP 130/85; PULSE 70; RESP 14; TEMP 36.2; O2SAT 100
== END 2024-04-18 11:12 | disposition home or self-care (01) ==
PROVIDERS: PCP Internal Medicine; Visit Provider Internal Medicine Gastroenterology
PROC: 0DJD8ZZ Inspection of Lower Intestinal Tract, Via Natural or Artificial Opening Endoscopic (ICD-10-PCS; CPT 45378; principal; 2024-04-18 10:40)
DX: Z12.11 Encounter for screening for malignant neoplasm of colon (principal); D12.5 Benign neoplasm of sigmoid colon; K64.0 First degree hemorrhoids; G43.909 Migraine, unspecified, not intractable, without status migrainosus; G25.81 Restless legs syndrome; G47.00 Insomnia, unspecified; R06.83 Snoring; Z79.899 Other long term (current) drug therapy; Z88.5 Allergy status to narcotic agent; Z98.890 Other specified postprocedural states; Z87.891 Personal history of nicotine dependence
CPT/HCPCS: 45385; 88305; J2704

== ENCOUNTER → 2024-04-18 07:59 | Outpatient (BNV) | payer OTHER, SELFPAY | PROVIDERS: PCP Internal Medicine; Visit Provider Internal Medicine Gastroenterology | DX: Z12.11 Encounter for screening for malignant neoplasm of colon (principal); D12.5 Benign neoplasm of sigmoid colon; K64.0 First degree hemorrhoids | CPT/HCPCS: 45385 ==

== ENCOUNTER 2024-08-07 17:39 | Outpatient (AMB) | payer OTHER, SELFPAY ==
--- NOTE | 2024-08-07 17:39 | MHC.PC.OV ---
Vital Signs 08/07/24 17:41 Height 5 ft Weight 135 lb BMI 26.4 BP 132/80 Blood Pressure Location Lt brachial Position Sitting Intake Visit Reasons: pe Intake Note: Patient here for a physical exam [place] Baggage Required: No Accompanied by: Self / Same As Patient Allergies codeine Allergy (Unknown, Verified 08/07/24 17:55) vomitting Medication List - Last Reconciled 08/07/24 by Nargis Sebastian MD amitriptyline 25 mg PO BEDTIME [id number]-[id number] 50-325-40 mg 1 tab PO Q6H PRN 30 days omeprazole 20 mg PO DAILY ropinirole 0.5 mg PO BEDTIME Tobacco use date assessed: 08/07/24 Fall risk assessment: No Falls in past year Last assessed Fall Risk: 08/07/24 Dental Screening Dental Screen Date: 08/07/24 Did you have a dental visit in the last 12 months?: Yes Did you have a dental problem in the last 6 months where you did not have access to dental care?: No Was dental information given to patient?: Patient has dentist HPI HPI Comments History of Present Illness Details The patient is a 64-year-old female presenting with multiple inquiries during a routine annual physical examination. She has a history of gastroesophageal reflux disease (GERD), for which she currently takes omeprazole 20 mg daily. She reports adhering to her medication regimen consistently. The patient also has restless leg syndrome managed with ropinirole 0.5 mg at night as needed. She mentioned an episode of vomiting that occurred during a liposuction procedure under anesthesia, which led to the cancellation of the surgery. The patient had a subsequent successful liposuction procedure a month later but again experienced vomiting, notably without any food in her stomach. Her past medical history includes hyperlipidemia, with the last recorded cholesterol level being 211 mg/dL. Although medication was recommended, she has yet to initiate treatment. She has a family history of diabetes mellitus, with her father being affected. The patient also completed a colonoscopy earlier this year, which revealed tubular adenoma, and she is scheduled for a repeat examination in three to five years. Mamography was performed in 2023 and yielded normal results. She pursued no further surgery after her previous adverse experiences during operative procedures. - Annual mammogram was performed and is normal. - Colonoscopy revealed tubular adenoma; repeat in three to five years is planned. - Recommends increasing fiber and water intake. - Advises bone densitometry to screen for osteoporosis due to menopause and bone mass concerns. - Recommend checking cholesterol again due to previous elevated levels. [facility] Medical History (Updated 08/07/24 @ 18:01 by Nargis Sebastian MD) Sleep disturbance Snoring Immunization history incomplete Physical exam Insomnia Restless leg syndrome Migraines Surgical History H/O abdominoplasty H/O: Family History Father Diabetes Mother Diabetes Hypertension Dementia Brother In good health Sister In good health Son In good health Daughter In good health Social History (Updated 08/07/24 @ 17:58 by Nargis Sebastian MD) Household Members: Significant Other Housing: House Alcohol intake: current Alcohol intake frequency: holidays/special occasions only Alcohol type: beer Patient Tobacco Use Status: Former Tobacco user e-Cigarette/Vaping Use: Never Used Second Hand Smoke Exposure: No service: No Current occupational status: 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: No Hearing needs: No Vision needs: No Questionnaire PHQ-9 Over the last 2 weeks, how often have you been bothered by any of the following problems? 1. Little interest or pleasure in doing things: not at all 2. Feeling down, depressed, or hopeless: not at all 3. Trouble falling or staying asleep, or sleeping too much: not at all 4. Feeling tired or having little energy: not at all 5. Poor appetite or overeating: not at all 6. Feeling bad about yourself - or that you are a failure or have let yourself or your family down: not at all 7. Trouble concentrating on things, such as reading the newspaper or watching television: not at all 8. Moving or speaking so slowly that other people could have noticed. Or the opposite - being so fidgety or restless that you have been moving around a lot more than usual: not at all 9. Thoughts that you would be better off or of hurting yourself in some way: not at all Total score: 0 Depression Screening Interpretation: Negative Depression Screening Done: Yes 57957 - PHQ-9 Billing: Yes Source: Developed by Drs. Enrrique Godinez, Lisbeth Dai, Matias Arciniega and colleagues, with an educational cande from [employer]. Thrive Questionnaire Date Thrive assessed: 08/07/24 I am a: Patient What is your living situation today?: I have a steady place to live Within the past 12 months, did the food you bought not last and you didn't have the money to get more?: Never true Within the past 12 months, did you worry whether your food would run out before you got money to buy more?: Never true Do you have trouble paying for medicines?: No Do you have trouble getting transportation to medical appointments?: No Do you have trouble paying your heating and electricity bill?: No Do you have trouble taking care of your child, family member or friend?: No Do you have trouble with day-to-day activities such as bathing, preparing meals, shopping, managing finances, etc.?: No Are you currently unemployed and looking for a job?: No Are you interested in more education?: No Please select the resources that you would like help with: None Currently or been in a relationship where the following occur: No concerns reported THRIVE Score: 0 AUDIT C Alcohol Use Questionnaire (AUDIT-C) 1. How often do you have a drink containing alcohol?: Never Total Score: 0 Score Reviewed/Action Taken: No FRANCO-7 AMB Questionnaire FRANCO-7 Date FRANCO - 7 assessed: 08/07/24 Feeling nervous, anxious, or on edge: 0 = Not at all Not being able to stop or control worryin = Not at all Worrying too much about different things: 0 = Not at all Trouble relaxin = Not at all Being so restless that it is hard to sit still: 0 = Not at all Becoming easily annoyed or irritable: 0 = Not at all Feeling afraid as if something awful might happen: 0 = Not at all Total FRANCO-7 score (0-4 normal; 5-9 mild; 10-14 moderate; 15-21 severe): 0 Source: Developed by Drs. Enrrique Godinez, Lisbeth Dai, Matias Arciniega and colleagues, with an educational cande from [employer]. FRANCO-7 Assessment Billing FRANCO-7 Assessment Tool: FRANCO-7 Assessment 81302 Review of Systems Const All systems reviewed & are unremarkable except as noted in HPI and below Card Denies chest pain at rest, Denies chest pain with activity, Denies edema, Denies irregular heart rhythm, Denies claudication, Denies dyspnea, Denies dyspnea on exertion, Denies orthopnea, Denies paroxysmal nocturnal dyspnea and Denies slow heart rate Resp Denies cough, Denies dyspnea and Denies dyspnea on exertion GI Denies abdominal pain, Denies change in bowel habits, Denies excessive flatus, Denies nausea and Denies vomiting Denies urinary incontinence, Denies urinary hesitancy and Denies urinary urgency Musc Denies abnormal gait, Denies atrophy, Denies deformity and Denies limited range of motion Skin/Breast Denies bleeding lesions, Denies changing lesions and Denies rash Neuro Denies abnormal gait, Denies behavioral changes and Denies lack of coordination Psych Denies behavioral changes Physical exam (Primary Care) Vital Signs: Last Vital Signs BP 132/80 08/07/24 17:41 BMI result Body Mass Index 26.4 BMI Assessment/Plan discussion: High BMI High, discussed plan: lifestyle, weight reduction, dietary and physical activity Tobacco/Smoking Status: Tobacco use Status Tobacco use date assessed 08/07/24 08/07/24 17:47 Patient Tobacco Use Status Former Tobacco user 08/07/24 17:47 e-Cigarette/Vaping Use Never Used 08/07/24 17:47 PHQ-9: PHQ-9 Score PHQ-9: Total score 0 08/07/24 18:13 Depression Screening Interpretation: Negative Thrive Assessment: Date of Thrive Assessment Date Thrive assessed 08/07/24 08/07/24 17:47 Currently or been in a relationship where the following occur: No concerns reported [facility] Head: Yes normal to inspection, Yes normocephalic and Yes atraumatic Ears: external ears normal Eyes General: appearance normal, both eyes and all related structures Eyelids: Yes eyelids normal Conjunctivae: conjunctivae normal Neck Neck: Yes normal visual inspection and Yes supple Resp Effort & Inspection: normal respiratory effort Auscultation: clear to auscultation bilaterally Cardio Jugular venous distension: no JVD Rate: regular rate Rhythm: regular rhythm Heart sounds: S1 normal heart sound present and S2 normal heart sound present GI Inspection: Yes normal to inspection Palpation (GI): Soft to palpation and nontender Auscultation: normal bowel sounds Skin General skin exam: no rashes or lesions noted Neuro General: no focal motor deficits Extrem General: Yes full ROM Psych Appearance: grossly normal Office Procedures Flu Questionnaire Does the patient have a severe egg allergy?: No Does the patient have severe life threatening allergies?: No Does the patient have a fever or illness today?: No Has the patient ever had Guillain-[place] Syndrome?: No Has the patient ever had any past reaction to a flu shot?: No Immunizations Fluarix Triv [id number] (PF) 45 mcg (15 mcg x 3)/0.5 mL IM syringe Performing Provider: Nargis Sebastian MD [facility] Administered by: ERIC Hernandez on 08/07/24 18:12 Dose Route Admin Location Dispensed Lot Number Expiration Date NDC [employer] Coordinator 0.5 mL IM Left Deltoid 0.5 mL [id number] 03/12/25 [id number] [employer] VIS Given Date VIS Provided VIS Publication Date 08/07/24 Single Vaccine 21 Eligibility Eligibility Date Funding Source Not [facility] Eligible 08/07/24 Private Coding Level of Care Code Est Pt Level 3 (33534) Est Pt Prev Care 40-64y(15331) Diagnoses Physical exam Z00.00 Chronic GERD K21.9 Additional Codes FRANCO-7 Assessment Billing - FRANCO-7 Assessment Tool: FRANCO-7 Assessment 43503 ([id number]) PHQ-9 - 81378 - PHQ-9 Billing: Yes ([id number]) Time Spent (min) 33 Assessment & Plan Assessment & Plan (1) Physical exam: Code(s): Z00.00 - Encounter for general adult medical examination without abnormal findings Category: Medical (2) Chronic GERD: Code(s): K21.9 - Gastro-esophageal reflux disease without esophagitis Category: Medical Plan - Hyperlipidemia: Recommend dietary changes to include more fiber and increased water intake. Consider medication if cholesterol remains elevated after dietary changes. 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 - Tubular Adenoma: Follow-up colonoscopy in the recommended 3-5 years. - Osteoporosis risk due to menopause: Suggest bone densitometry for further evaluation. Patient was informed and verbally consented to the use of an ambient scribe for clinic note documentation during this visit. During the consultation, I discussed the importance of maintaining her current medication regimen, particularly for GERD management. We considered the potential causes of her previous surgical complications, and I advised caution with any future surgical procedures. For her hyperlipidemia, I emphasized the role of dietary modifications for cholesterol management, alongside the potential need for pharmacological intervention if levels remain high. We also deliberated on pursuing routine health maintenance, including bone densitometry for osteoporosis, given her post-menopausal status. Lastly, I encouraged increasing her fiber and water intake to promote better gastrointestinal function and discussed the need to monitor her cholesterol levels closely, recommending lifestyle modifications to manage them effectively. Follow-up for repeat laboratories was advised to monitor her cholesterol levels. Orders: Orders [place] upper GI series Today K21.9 - Gastro-esophageal reflux disease without esophagitis Comprehensive [place]. Panel Fast Today Z00.00 - Encounter for general adult medical examination without abnormal findings Influenza [id number] Immunization Today Z23 - Encounter for immunization XR DEXA axial skeleton Today Z78.0 - Asymptomatic menopausal state Lipid Panel Today E78.5 - Hyperlipidemia, unspecified Medications: New sennosides (Senna Laxative) 8.6 mg PO BEDTIME PRN 30 tabs 5RF constipation 30 days Patient Instructions: - Continue taking omeprazole and ropinirole as previously prescribed. - Increase intake of dietary fiber and water. - Schedule and complete follow-up cholesterol lab tests. - Consider bone density testing as discussed. - Avoid elective surgery unless necessary, given past issues with anesthesia. - Continue routine annual health screenings such as mammography and colonoscopy within recommended intervals. - Be aware of any changes in health status and return for further evaluation as needed.
[2024-08-07 17:41] VITALS: BP 132/80; BMI 26.4
== END 2024-08-07 18:01 | disposition home or self-care (01) ==
LOC: HO.HMCH 17:39
PROVIDERS: PCP Internal Medicine; Visit Provider Internal Medicine
DX: Z00.00 Encounter for general adult medical examination without abnormal findings (principal); K21.9 Gastro-esophageal reflux disease without esophagitis

== ENCOUNTER → 2024-08-07 17:39 | Outpatient (BNVA) | payer OTHER, SELFPAY | PROVIDERS: PCP Internal Medicine; Visit Provider Internal Medicine | DX: Z00.00 Encounter for general adult medical examination without abnormal findings (principal); Z23 Encounter for immunization; K21.9 Gastro-esophageal reflux disease without esophagitis; E78.5 Hyperlipidemia, unspecified; Z86.0101 Personal history of adenomatous and serrated colon polyps | CPT/HCPCS: 90471; 90656; 96127 ==

== ENCOUNTER 2024-08-12 08:56 | Outpatient (REF) | payer OTHER, SELFPAY ==
[2024-08-12 10:03] LABS: Alanine Aminotransferase 21 U/L (0-31); Albumin Level 4.2 g/dL (3.5-5.0); Alkaline Phosphatase 132 U/L (39-117); Anion Gap 12 (12-20); Aspartate Amino Transferase 20 U/L (5-31); Bilirubin Total 0.3 mg/dL (0.0-1.0); Blood Urea Nitrogen 19 mg/dL (9-16); Calcium 8.8 mg/dL (8.4-10.2); Carbon Dioxide 27 mmol/L (22-29); Chloride 106 mmol/L (96-108); Cholesterol 245 mg/dL (<200); Estimated Glomerular Filt Rate > 60; Glucose Fasting 101 mg/dL (60-99); HDL Cholesterol 53 mg/dL (>40); LDL Cholesterol Calculated 121 mg/dL (<100); Potassium 4.3 mmol/L (3.3-5.1); Sodium 141 mmol/L (135-145); Total Protein 7.5 g/dL (6.5-8.0); Triglycerides 359 mg/dL (<150)
== END 2024-08-12 08:57 | disposition home or self-care (01) ==
LOC: HO.LAB 08:56
PROVIDERS: PCP Internal Medicine; Visit Provider Internal Medicine
DX: Z00.00 Encounter for general adult medical examination without abnormal findings (principal); E78.5 Hyperlipidemia, unspecified
CPT/HCPCS: 36415; 80053; 80061

== ENCOUNTER 2024-09-28 13:53 | Outpatient (REF) | payer OTHER, SELFPAY ==
--- NOTE | ~2024-09-28 | MM_ITS ---
EXAMINATION: Dual-Energy X-ray Absorptiometry - Bone Density Study HISTORY: Estrogen deficiency TECHNIQUE: [employer] Dual energy absorptiometry (DEXA) of the lumbar spine, total left hip, and femoral neck was performed. COMPARISON: There are no prior studies for comparison. FINDINGS: The bone mineral density of the lumbar spine is 0.824 with a T-score of -3.1, and a Z-score of -1.5. The bone mineral density of the left total hip is 0.954 with a T-score of -0.4, and a Z-score of 0.8. The bone mineral density of the left femoral neck is 0.806 with a T-score of -1.7, and a Z-score of -0.2. MM/XR DEXA axial skeleton IMPRESSION: Based on bone mineral density, and according to World Health Organization (WHO) criteria, the diagnosis is consistent with osteoporosis. All bone density values are in grams per centimeter squared. At this facility, the least significant change in BMD with 95% confidence is 0.022 at the lumbar spine, 0.027 at the hip, and 0.023 at the distal 1/3 radius. Electronically signed by: Enrrique Hill MD 09/28/2024 03:18 PM [facility]
== END 2024-09-28 13:54 | disposition home or self-care (01) ==
LOC: HO.MAMMO 13:53
PROVIDERS: PCP Internal Medicine; Visit Provider Internal Medicine
DX: Z13.820 Encounter for screening for osteoporosis (principal); Z78.0 Asymptomatic menopausal state
CPT/HCPCS: 77080

== ENCOUNTER → 2024-09-28 14:00 | Outpatient (BNV) | payer OTHER, SELFPAY | PROVIDERS: PCP Internal Medicine; Visit Provider Radiology Diagnostic Radiology | DX: E28.39 Other primary ovarian failure (principal) | CPT/HCPCS: 77080 ==

== ENCOUNTER 2024-10-09 16:18 | Outpatient (AMB) | payer OTHER, SELFPAY ==
--- NOTE | 2024-10-09 16:25 | MHC.PC.OV ---
Vital Signs 10/09/24 16:28 Height 5 ft Weight 140 lb 4 oz BMI 27.4 BP 120/70 Blood Pressure Location Rt brachial Position Sitting Pulse 82 Pulse Source Pulse Oximeter Temp 97.5 F Temp Source Skin Pulse Oximetry (%) 98 Oxygen Delivery Method Room Air Intake Visit Reasons: Vertigo Intake Note: Patient is here to follow up on Vertigo on going for two weeks. 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 Accompanied by: Self / Same As Patient Allergies codeine Allergy (Unknown, Verified 10/09/24 17:01) vomitting Medication List - Last Reconciled 10/09/24 by Alia Almeida PA-C amitriptyline 25 mg PO BEDTIME jnwqjtptlt-ktgngqrgovkzd-qyoh 50-325-40 mg 1 tab PO Q6H PRN 30 days meclizine 50 mg PO BID PRN omeprazole 20 mg PO DAILY ondansetron HCl 4 mg PO Q8H PRN ropinirole 0.5 mg PO BEDTIME sennosides (Senna Laxative) 8.6 mg PO BEDTIME PRN 30 days Tobacco use date assessed: 10/09/24 Fall risk assessment: No Falls in past year Last assessed Fall Risk: 10/09/24 Dental Screening Dental Screen Date: 10/09/24 Did you have a dental visit in the last 12 months?: Yes Did you have a dental problem in the last 6 months where you did not have access to dental care?: No Was dental information given to patient?: Patient has dentist [facility] Medical History Sleep disturbance Snoring Immunization history incomplete Physical exam Insomnia Restless leg syndrome Migraines Surgical History H/O abdominoplasty H/O: Family History Father Diabetes Mother Diabetes Hypertension Dementia Brother In good health Sister In good health Son In good health Daughter In good health Social History Household Members: Significant Other Housing: House Alcohol intake: current Alcohol intake frequency: holidays/special occasions only Alcohol type: beer Patient Tobacco Use Status: Former Tobacco user e-Cigarette/Vaping Use: Never Used Second Hand Smoke Exposure: No service: No Current occupational status: 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: No Hearing needs: No Vision needs: Yes (Glasses) Questionnaire PHQ-9 Over the last 2 weeks, how often have you been bothered by any of the following problems? 1. Little interest or pleasure in doing things: not at all 2. Feeling down, depressed, or hopeless: not at all 3. Trouble falling or staying asleep, or sleeping too much: not at all 4. Feeling tired or having little energy: not at all 5. Poor appetite or overeating: not at all 6. Feeling bad about yourself - or that you are a failure or have let yourself or your family down: not at all 7. Trouble concentrating on things, such as reading the newspaper or watching television: not at all 8. Moving or speaking so slowly that other people could have noticed. Or the opposite - being so fidgety or restless that you have been moving around a lot more than usual: not at all 9. Thoughts that you would be better off or of hurting yourself in some way: not at all Total score: 0 Depression Screening Interpretation: Negative Depression Screening Done: Yes 40218 - PHQ-9 Billing: Yes Source: Developed by Drs. Enrrique Godinez, Lisbeth Dai, Matias Arciniega and colleagues, with an educational cande from [employer]. Thrive Questionnaire Date Thrive assessed: 10/09/24 I am a: Patient What is your living situation today?: I have a steady place to live Within the past 12 months, did the food you bought not last and you didn't have the money to get more?: Never true Within the past 12 months, did you worry whether your food would run out before you got money to buy more?: Never true Do you have trouble paying for medicines?: No Do you have trouble getting transportation to medical appointments?: No Do you have trouble paying your heating and electricity bill?: No Do you have trouble taking care of your child, family member or friend?: No Do you have trouble with day-to-day activities such as bathing, preparing meals, shopping, managing finances, etc.?: No Are you currently unemployed and looking for a job?: No Are you interested in more education?: No Please select the resources that you would like help with: None Currently or been in a relationship where the following occur: No concerns reported THRIVE Score: 0 AUDIT C Alcohol Use Questionnaire (AUDIT-C) 1. How often do you have a drink containing alcohol?: Never Total Score: 0 FRANCO-7 AMB Questionnaire FRANCO-7 Date FRANCO - 7 assessed: 10/09/24 Feeling nervous, anxious, or on edge: 0 = Not at all Not being able to stop or control worryin = Not at all Worrying too much about different things: 0 = Not at all Trouble relaxin = Not at all Being so restless that it is hard to sit still: 0 = Not at all Becoming easily annoyed or irritable: 0 = Not at all Feeling afraid as if something awful might happen: 0 = Not at all Total FRANCO-7 score (0-4 normal; 5-9 mild; 10-14 moderate; 15-21 severe): 0 Source: Developed by Drs. Enrrique Godinez, Lisbeth Dai, Matias Arciniega and colleagues, with an educational cande from [employer]. FRANCO-7 Assessment Billing FRANCO-7 Assessment Tool: FRANCO-7 Assessment 11148 Physical exam (Primary Care) Vital Signs: Last Vital Signs Temp 97.5 F 10/09/24 16:28 Pulse 82 10/09/24 16:28 BP 120/70 10/09/24 16:28 Pulse Ox 98 10/09/24 16:28 Oxygen Delivery Method Room Air 10/09/24 16:28 Care Plan Goal for BP management: <130/80 at goal today BMI result Body Mass Index 27.4 BMI Assessment/Plan discussion: High BMI High, discussed plan: lifestyle, weight reduction, dietary, physical activity and alcohol moderation Tobacco/Smoking Status: Tobacco use Status Tobacco use date assessed 10/09/24 10/09/24 16:32 Patient Tobacco Use Status Former Tobacco user 10/09/24 16:25 e-Cigarette/Vaping Use Never Used 10/09/24 16:25 PHQ-9: PHQ-9 Score PHQ-9: Total score 0 10/09/24 16:32 Depression Screening Interpretation: Negative Thrive Assessment: Date of Thrive Assessment Date Thrive assessed 10/09/24 10/09/24 16:32 Currently or been in a relationship where the following occur: No concerns reported Coding Level of Care Code Est Pt Level 4 (13262) Complex EM visit Add On G2211 Diagnoses Vertigo R42 Additional Codes FRANCO-7 Assessment Billing - FRANCO-7 Assessment Tool: FRANCO-7 Assessment 54829 ([id number]) PHQ-9 - 13370 - PHQ-9 Billing: Yes ([id number]) Assessment & Plan Assessment & Plan (1) Vertigo: Code(s): R42 - Dizziness and giddiness Category: Medical Plan: Patient has a normal neuro exam. NIH SS score 0. Symptoms has been present for the past 2 weeks intermittently. Will obtain basic labs which include CBC, CMP, magnesium, carotid ultrasounds bilaterally and CT scan of brain. Patient will be sent with meclizine, Zofran and physical therapy referral with instructions return in 1-2 weeks for re-evaluation. Condition is stable will continue to monitor. Plan Plan - Request imaging studies, including sonography and computed tomography, to rule out other causes of dizziness. - Prescribe medications: Continue Meclizine as previously effective. - Referral to physical therapy for vestibular rehabilitation to manage vertigo symptoms. - Perform blood tests for further assessment. Orders: Orders PT Evaluation and Treatment Today R42 - Dizziness and giddiness US carotid duplex BI Today R42 - Dizziness and giddiness Complete Blood Count Auto Diff Today R42 - Dizziness and giddiness Comprehensive [place]. Panel Fast Today R42 - Dizziness and giddiness Magnesium Today R42 - Dizziness and giddiness CT head/brain wo IV con Today R42 - Dizziness and giddiness Medications: New meclizine 50 mg PO BID PRN 30 tabs 1RF dizziness ondansetron HCl 4 mg PO Q8H PRN 30 tabs 1RF nausea and vomiting Patient Instructions: Patient Instructions - Follow the referral for physical therapy for balance exercises. - Take prescribed medications as directed. - Complete imaging and blood tests as scheduled. - Monitor symptoms and seek care if the dizziness worsens or if new symptoms arise. - Follow up with the clinic in one to two weeks or as advised by Dr. Gonsalez. Scribe Plan - Not visible on output: History of Present Illness The patient is a 64-year-old female presenting with dizziness persisting for two weeks. She reports this feeling of dizziness every day, with no significant relief throughout the day. The dizziness is particularly noticeable when lowering her head. She denies any recent illnesses, head trauma, falls, or accidents. A history of vertigo more than ten years ago was noted, during which she was prescribed Meclizine that provided some relief. Currently, she experiences nausea and occasional vomiting associated with the dizziness, especially when getting up in the morning, and needs to remain still for a while until the symptoms valarie. She denies accompanying headaches, fever, unilateral weakness, or numbness. There have been no recent changes in medications or new factors identified that might contribute to the dizziness. Social History - The patient mentioned work-related limitations due to the dizziness but did not provide specific details about her current employment status or other social factors. Review of Systems - Neurological: Reports dizziness, nausea, and vomiting; Denies headaches, unilateral weakness, numbness, or tingling. Physical Exam Appearance: Alert. Oriented X3. No acute distress. Head: Normal external exam. Normocephalic. Atraumatic. Eyes: Pupils are equal, round, and reactive to light. Extraocular movements intact. Conjunctiva and sclera normal. Eyelids normal. Ears: External auditory canal normal. Tympanic membranes normal. Throat: Pharynx normal. Uvula midline. Moist mucous membranes. Neck: Normal inspection. Neck supple. Full range of motion. No adenopathy. Thyroid Normal. No meningeal signs. No neck mass noted. Cardiovascular: Normal heart rate and rhythm. Heart sound normal. No murmurs noted. Pulses normal throughout. Respiratory: No respiratory distress. Painless inspiration. Breath sounds normal. No wheezes/rales/rhonchi noted. Chest nontender. No accessory muscle usage noted or decreased air movement noted. Abdomen: Soft and nontender. Bowel sounds normal in all 4 quadrants. No distention noted. No organomegaly noted. No visible injury noted. Back: No costovertebral angle tenderness. Full range of motion noted. Skin: Skin warm and dry. Normal skin color. Normal skin turgor. No rashes/lesions/lacerations noted. Extremities: No lower extremity edema. Extremities exhibit normal range of motion. Extremities nontender. Neuro: Oriented X 3. No motor deficit. No sensory deficit. Reflexes normal. Patient reports dizziness for two weeks, especially when lowering the head. No headaches, fever, weakness, or numbness on one side of the body. Balance appears normal upon examination. Negative nystagmus. Negative pronator drift. Negative heel to toe test. Normal steady gait. NIH SS score 0. Results Plan - Request imaging studies, including sonography and computed tomography, to rule out other causes of dizziness. - Prescribe medications: Continue Meclizine as previously effective. - Referral to physical therapy for vestibular rehabilitation to manage vertigo symptoms. - Perform blood tests for further assessment. Patient was informed and verbally consented to the use of an ambient scribe for clinic note documentation during this visit. Discussion Notes I discussed with the patient that her symptoms are consistent with vertigo, as indicated by her history and current presentation. We agreed on proceeding with imaging studies to exclude other potential causes. I explained that Meclizine can help manage her symptoms and advised her on its continuation since it was beneficial in the past. I recommended physical therapy specifically for vestibular rehabilitation, which can be effective in treating vertigo. We discussed the potential benefits and risks of the proposed diagnostic studies, and the patient expressed understanding and agreement. I informed her that I would contact her with the results and she would return for a follow-up to evaluate the effectiveness of the management plan. We agreed on coordinating with her primary physician, Dr. Gonsalez, for further continuity of care. Patient Instructions - Follow the referral for physical therapy for balance exercises. - Take prescribed medications as directed. - Complete imaging and blood tests as scheduled. - Monitor symptoms and seek care if the dizziness worsens or if new symptoms arise. - Follow up with the clinic in one to two weeks or as advised by Dr. Gonsalez.
[2024-10-09 16:28] VITALS: BP 120/70; PULSE 82; TEMP 36.4; O2SAT 98; BMI 27.4
--- OUTSIDE RECORDS SUMMARY | 2024-10-09 19:49 | XMS_ITS | Clinical Summary ---
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 Role Phone Nargis Bradley MD Primary Care Provid er Social History Tobacco Use Types Packs/Day Years Used Date Smoking Tobacco: Never Assessed Comments Unknown Sex and Gender Information Value Date Recorded Sex Assigned at Not on file Legal Sex Female 6:39 PM EDT Gender Identity Not on file Sexual Orientation Not on file Plan of Treatment Health Maintenance Due Date Last Done Comments Colorectal Cancer: COLONOSCO PY Screening every 10 yrs (or Modifier) 1960 Depression: Screening Annual ly using PHQ-2/9 in Adults 18 yrs or above (or HM Modifier)([facility]) 1978 Hepatitis C Virus Infection in Adolescents and Adults: Screening (or Modifier) ([facility]) 1978 [facility] Screening Reminder: Annette grace for all adults ([facility]) 1978 Tobacco Smoking Cessation: i n Adults excluding Women: Behavioral and Pharmacotherapy Interventions ([facility]) 1978 DTaP/Tdap/Td Vaccines ([facility]) (1 - Tdap) 1979 Cervical Cancer Screenin 1-65 yrs of age (or Modifier) 1981 Cervical Cancer Screening: P ap every 3 yrs pts age 21-65 1981 Cervical Cancer: Pap Screeni ng with Modifier timing ([facility]) 1981 Cervical Cancer: hrHPV alone or with cotesting Pap for Pts 30-65yrs screening every 5yrs ([facility]) 1981 Colorectal Cancer Screening 45 -75 Yrs (or HM Modifier) 2005 Colorectal Cancer: FLEXIBLE SIGMOIDOSCOPY Screening every 5 yrs 2005 Colorectal Cancer: Fecal Immunochemical Test (FIT) Annually [facility] 2005 Colorectal Cancer: High-sens itivity gFOBT Screening Annually [facility] 2005 Colorectal Cancer: Stool Col oguard Screening every 3 yrs 2005 Colorectal Cancer:CT Colonog abdiel Screening every 5 yrs 2005 Lipid Screening: Every 5 yrs for Women aged 45+ (or HM Modifier) ([facility]) 2006 Breast Cancer: Screening Annette ually age 50-74 yrs (or HM Modifier)([facility]) 2010 Zoster/Shingles Vaccine Seri es Screening: Adults aged 18+ yrs (or HM Modifiers)([facility]) (1 of 2) 2010 Flu Vaccination: Yearly for ages 18mos through 64 years (or Modifier)([facility]) 04/13/2024 COVID-19 Vaccine Screening: Initial Series and Booster Status ([facility]) ( - 2023- season) 2024 RSV Vaccines (1 - 1-dose 75+ series) 2035 Pneumococcal Vaccination Scr eening: Pts 0-19 & 19-64 yrs of age ([facility]) Aged Out No longer eligible based on patient's age to complete this topic Medical Devices Not on file Insurance [facility] [address] [place] [address] Care Teams Gasoline Engine Inspector Relationship Specialty Start Date End Date Nargis Bradley MD [address] [place] [address] [address] [place] [id number] PCP - General Internal Medicine 06/30/20
--- OUTSIDE RECORDS SUMMARY | 2024-10-09 19:49 | XMS_ITS | Patient Health Record ---
[facility] Address [address] [place] [address] Care Team Providers Care Preboarder Name Role Phone Nargis Aviles MD Primary Care Provider Unavail able Nataliia uGpta Unavailable [phone] Allergies Allergen (clinical drug ingredient) Drug/Non Drug Allergy documented on EMR Reaction Allergy Type Onset Date Status codeine Codeine Unknown Drug Allergy Active Reason For Referral No Information Medications Medication SIG (Take, Route, Frequency, Duration) Notes Start Date End Date Status Amitriptyline HCl 25 MG 1 tablet at bedt greg Orally Once a day for 30 day(s) Active Butalbital-Acetaminophen 50-325 MG 1 tablet as needed Orally every 4 hrs Not-Taking rOPINIRole HCl 0.5 MG 1 tablet 1 to 3 ho urs before bedtime Orally Once a day for 30 day(s) Active Social History Tobacco Use: Social History Observation Description Date Details (start date - stop date) Former Smoker NA - NA Tobacco Use/Smoking Question Answer Notes Are you a: former smoker Additional Findings: Tobacco Non-User Current no n-smoker Alcohol Screen Question Answer Notes Did you have a drink containing alcohol in the p ast year? No Points 0 Interpretation Negative Tobacco use other than smoking: Question Answer Notes Are you an other tobacco user? 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
== END 2024-10-09 16:54 | disposition home or self-care (01) ==
PROVIDERS: PCP Internal Medicine; Visit Provider Physician Assistant Medical
DX: R42 Dizziness and giddiness (principal)

== ENCOUNTER → 2024-10-09 16:18 | Outpatient (BNVA) | payer OTHER, SELFPAY | PROVIDERS: PCP Internal Medicine; Visit Provider Physician Assistant Medical | DX: R42 Dizziness and giddiness (principal) | CPT/HCPCS: 96127 ==

== ENCOUNTER 2024-10-20 15:17 | Outpatient (REF) | payer OTHER, SELFPAY | END 2024-10-20 15:18 | disposition home or self-care (01) | LOC: HO.US 15:17 | PROVIDERS: PCP Internal Medicine; Visit Provider Physician Assistant Medical | DX: R42 Dizziness and giddiness (principal) | CPT/HCPCS: 93880 ==

== ENCOUNTER → 2024-10-20 15:19 | Outpatient (BNV) | payer OTHER, SELFPAY | PROVIDERS: PCP Internal Medicine; Visit Provider Radiology Diagnostic Radiology | DX: R42 Dizziness and giddiness (principal) | CPT/HCPCS: 70450; 93880 ==

== ENCOUNTER 2024-10-26 08:43 | Outpatient (REF) | payer OTHER, SELFPAY ==
--- NOTE | ~2024-10-26 | FL_ITS ---
EXAMINATION: XR FLUOROSCOPY UPPER GI SERIES. CLINICAL INFORMATION: Episodic nausea and vomiting, patient states 2-3 times per week; gastroesophageal reflux. COMPARISON: None TECHNIQUE: Fluoroscopic air contrast upper GI examination was performed utilizing standard techniques with thin and thick barium and effervescent granules. Numerous spot images were obtained. Several fluoroscopic image hold cine sequences were also obtained. This was followed by small bowel series using standard overhead radiographic techniques at specified intervals until contrast was seen in the right colon. Fluoroscopic spot radiographs were then obtained of the terminal ileum and any abnormal findings in the small bowel. FINDINGS: UPPER GI SERIES: Lateral cine images of the oropharynx and hypopharynx demonstrate normal swallow mechanism with normal epiglottic inversion and soft palate elevation. No tracheal penetration, glottic or subglottic aspiration identified. No nasopharyngeal reflux present. Hypopharyngeal structures appear normal without evidence of mass or diverticulum. There was no significant cricopharyngeal achalasia. Dual and single contrast images of the esophagus demonstrate normal caliber, contour, and mucosal pattern. No evidence of stricture, mass, or ulcerations identified. Esophageal peristalsis was moderately disordered. There is a small type I hiatus hernia. There was episodic significant gastroesophageal reflux to the level of the aortic arch. Dual contrast and single contrast images of the stomach demonstrated normal contour. There is prominence of the areae gastricae , suggesting gastritis. No mass or ulcer. Normal fold pattern. Contrast freely passed into the gastric antrum and duodenal bulb without delay. Single and air-contrast images of the duodenal bulb demonstrate no abnormality. The duodenal sweep has a normal appearance, course, and mucosal fold appearance. FLUOROSCOPY TIME: 2 minutes, 20 seconds. Number of Spot Images:11 Number of cines obtained: 12 DOSE AREA PRODUCT: 1640 uGy-m2 (microgray-meter squared) FL/FL upper GI w air IMPRESSION: 1. Moderately disordered esophageal peristalsis. 2. Episodic gastroesophageal reflux to the level of the aortic arch. 3. Small type I hiatus hernia. 4. Thickened appearance of the gastric areae gastricae, suggesting underlying gastritis. Electronically signed by: Ti Moreno MD 10/26/2024 11:21 AM [facility]
--- OUTSIDE RECORDS SUMMARY | 2024-10-26 08:49 | XMS_ITS | Patient Health Record ---
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
== END 2024-10-26 08:44 | disposition home or self-care (01) ==
LOC: HO.XRAY 08:43
PROVIDERS: PCP Internal Medicine; Visit Provider Internal Medicine
DX: K21.9 Gastro-esophageal reflux disease without esophagitis (principal); M81.0 Age-related osteoporosis without current pathological fracture; H81.10 Benign paroxysmal vertigo, unspecified ear; G44.52 New daily persistent headache (NDPH)
CPT/HCPCS: 74246

== ENCOUNTER → 2024-10-26 08:45 | Outpatient (BNV) | payer OTHER, SELFPAY | PROVIDERS: PCP Internal Medicine; Visit Provider Radiology Diagnostic Radiology | DX: K21.9 Gastro-esophageal reflux disease without esophagitis (principal) | CPT/HCPCS: 74246; 74248 ==

== ENCOUNTER 2024-10-26 12:43 | Outpatient (AMB) | payer OTHER, SELFPAY ==
--- NOTE | 2024-10-26 12:45 | MHC.PC.OV ---
Vital Signs 10/26/24 12:46 Height 5 ft Weight 138 lb BMI 26.9 BP 122/80 Blood Pressure Location Lt brachial Position Sitting Intake Visit Reasons: 2 week f/u Intake Note: Patient here for a 2 week follow up Rope Walker Required: Yes Rope Walker Language: Invasive Cardiologist Name: Nargis Sebastian MD Information Interpreted: non-clinical & clinical Accompanied by: Self / Same As Patient Allergies codeine Allergy (Unknown, Verified 10/26/24 13:05) vomitting Medication List - Last Reconciled 10/26/24 by Nargis Sebastian MD amitriptyline 25 mg PO BEDTIME iptjcriesv-lkhswdlvfxnft-tuxr 50-325-40 mg 1 tab PO Q6H PRN 30 days omeprazole 20 mg PO DAILY ondansetron HCl 4 mg PO Q8H PRN ropinirole 0.5 mg PO BEDTIME sennosides (Senna Laxative) 8.6 mg PO BEDTIME PRN 30 days Tobacco use date assessed: 10/09/24 Fall risk assessment: No Falls in past year Last assessed Fall Risk: 10/26/24 Dental Screening Dental Screen Date: 10/09/24 HPI HPI Comments History of Present Illness Details The patient is a 64-year-old female presenting with vertigo. The issue began approximately three weeks ago. It is associated with nausea and headaches, which tend to occur nearly daily in the mornings. The patient reports that episodes are triggered when there are sudden head movements. She has not observed any tinnitus. The current medications include Amitriptyline, Fioricet as needed, Omeprazole, Ondansetron, and Ropinirole. She takes a lower dose of Amitriptyline than prescribed. The patient reports that Fioricet provides temporary relief for headaches but may contribute to rebound headaches. Prior investigations include a Doppler, which showed a minimal plaque on the right side of the neck but was otherwise normal. Bone densitometry indicated osteoporosis with a T-score of -3.1. There is a noted small hiatal hernia and gastritis from a recent radiograph. The patient is scheduled for a rheumatology consultation for osteoporosis and gastroenterology for gastrointestinal symptoms but has not yet seen neurology or gastroenterology. [facility] Medical History (Updated 10/26/24 @ 13:26 by Nargis Sebastian MD) Sleep disturbance Snoring Immunization history incomplete Physical exam Insomnia Restless leg syndrome Migraines Surgical History H/O abdominoplasty H/O: Family History Father Diabetes Mother Diabetes Hypertension Dementia Brother In good health Sister In good health Son In good health Daughter In good health Social History Household Members: Significant Other Housing: House Alcohol intake: current Alcohol intake frequency: holidays/special occasions only Alcohol type: beer Patient Tobacco Use Status: Former Tobacco user e-Cigarette/Vaping Use: Never Used Second Hand Smoke Exposure: No service: No Current occupational status: 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: No Hearing needs: No Vision needs: Yes (Glasses) Questionnaire Thrive Questionnaire Date Thrive assessed: 10/09/24 FRANCO-7 AMB Questionnaire FRANCO-7 Date FRANCO - 7 assessed: 10/09/24 Source: Developed by Drs. Enrrique Godinez, Lisbeth Dai, Matias Arciniega and colleagues, with an educational cande from [employer]. Review of Systems Const All systems reviewed & are unremarkable except as noted in HPI and below Reports headache(s) ENT Reports vertigo and Reports headache(s) Card Denies chest pain at rest, Denies chest pain with activity, Denies edema, Denies irregular heart rhythm, Denies claudication, Denies dyspnea, Denies dyspnea on exertion, Denies orthopnea, Denies paroxysmal nocturnal dyspnea and Denies slow heart rate Resp Denies cough, Denies dyspnea and Denies dyspnea on exertion GI Denies abdominal pain, Denies change in bowel habits, Denies excessive flatus, Reports heartburn, Denies nausea and Denies vomiting Neuro Reports vertigo and Reports headache(s) Physical exam (Primary Care) BMI result Body Mass Index 26.9 Tobacco/Smoking Status: Tobacco use Status Tobacco use date assessed 10/09/24 10/26/24 12:50 Patient Tobacco Use Status Former Tobacco user 10/26/24 12:50 e-Cigarette/Vaping Use Never Used 10/26/24 12:50 Thrive Assessment: Date of Thrive Assessment Date Thrive assessed 10/09/24 10/26/24 12:50 Resp Effort & Inspection: normal respiratory effort Auscultation: clear to auscultation bilaterally Cardio Jugular venous distension: no JVD Rate: regular rate Rhythm: regular rhythm Heart sounds: S1 normal heart sound present and S2 normal heart sound present Neuro General: no focal motor deficits Gait exam (Neuro): Normal gait present Romberg Test: Negative Extrem General: Yes full ROM Coding Level of Care Code Est Pt Level 4 (69017) Complex EM visit Add On G2211 Diagnoses Benign paroxysmal vertigo, unspecified laterality H81.10 Laterality: unspecified laterality New persistent daily headache G44.52 Age-related osteoporosis without current pathological fracture M81.0 Osteoporosis type: age-related Presence of current pathological fracture: without current pathological fracture Chronic GERD K21.9 Time Spent (min) 22 Assessment & Plan Assessment & Plan (1) Benign paroxysmal vertigo, unspecified ear: Code(s): H81.10 - Benign paroxysmal vertigo, unspecified ear Category: Medical Qualifiers: Laterality: unspecified laterality Qualified Code(s): H81.10 - Benign paroxysmal vertigo, unspecified ear (2) New persistent daily headache: Code(s): G44.52 - New daily persistent headache (NDPH) Category: Medical (3) Osteoporosis: Code(s): M81.0 - Age-related osteoporosis without current pathological fracture Category: Medical Qualifiers: Osteoporosis type: age-related Presence of current pathological fracture: without current pathological fracture Qualified Code(s): M81.0 - Age-related osteoporosis without current pathological fracture (4) Chronic GERD: Code(s): K21.9 - Gastro-esophageal reflux disease without esophagitis Category: Medical Plan - Arrange a consultation with neurology to explore alternative medications for headache management. - Consider a possible trial of scopolamine patches for vertigo, pending availability. - Referral to gastroenterology for further management of gastrointestinal symptoms, including evaluation for possible endoscopy. - Encourage reducing the use of Fioricet to avoid rebound headaches and consider alternative headache medications such as sumatriptan. - Continue follow-up with rheumatology for osteoporosis management and potential pharmacotherapy, informed by risks like dental effects. Patient was informed and verbally consented to the use of an ambient scribe for clinic note documentation during this visit. I discussed with the patient the possible causes of vertigo, including the concept of displaced otoliths affecting the vestibular system. I also highlighted the potential rebound headache effect of Fioricet and the need for evaluation by neurology to optimize headache management. There was a discussion about the availability and viability of scopolamine patches, given their previous market withdrawal. We reviewed the osteoporosis treatment options, emphasizing follow-up with rheumatology to evaluate treatment risks and benefits, particularly regarding potential dental issues. I advised her about the scheduled consultations and the importance of these to effectuate care adjustments. Orders: Referrals Gastroenterology Referral K21.9 - Gastro-esophageal reflux disease without esophagitis Neurology Referral G44.52 - New daily persistent headache (NDPH) Medications: New sumatriptan succinate do not exceed 8 doses per 24 hrs 25 mg PO Q2-4H 30 days PRN 9 tabs 0RF migraine headache scopolamine base 1 patch transdermal Q3D 7 days PRN 4 ea 0RF nausea and vomiting Refilled omeprazole 20 mg PO DAILY 30 caps 0RF Patient Instructions: - Attend scheduled neurology appointment to assess headache treatment options. - Limit Fioricet usage; expect neurological consultation to propose alternative medications. - Be vigilant of the side effects associated with any new vertigo treatments, such as scopolamine patches. - Ensure ongoing follow-up with rheumatology and gastroenterology as scheduled for comprehensive management of osteoporosis and gastrointestinal symptoms. - Stay attentive to any adverse effects from current medication regimens or new symptoms, and report these as they arise.
[2024-10-26 12:46] VITALS: BP 122/80; BMI 26.9
== END 2024-10-26 13:22 | disposition home or self-care (01) ==
PROVIDERS: PCP Internal Medicine; Visit Provider Internal Medicine
DX: H81.10 Benign paroxysmal vertigo, unspecified ear (principal); G44.52 New daily persistent headache (NDPH); M81.0 Age-related osteoporosis without current pathological fracture; K21.9 Gastro-esophageal reflux disease without esophagitis

== ENCOUNTER 2024-11-08 07:33 | Outpatient (REF) | payer OTHER, SELFPAY ==
--- NOTE | ~2024-11-08 | CT_ITS ---
EXAMINATION: CT HEAD WITHOUT CONTRAST CLINICAL INFORMATION: R42 - Dizziness and giddiness COMPARISON: None available. TECHNIQUE: Contiguous axial imaging was performed from the skull base to vertex without intravenous administration of contrast. This CT examination was performed using dose optimization techniques as appropriate, variously including the following: *Automated exposure control *Adjustment of mA and/or kV according to patient size (this includes techniques or standardized protocols for targeted exams where dose is matched to indication/reason for exam; i.e. extremities or head) *Use of iterative reconstruction technique DLP: 647 mGy-cm FINDINGS: No acute intracranial hemorrhage, mass effect, midline shift, hydrocephalus or herniation. Frazier-white matter differentiation is normal. Subtle patchy deep periventricular white matter hypodensities. Asymmetry in the left lateral ventricle likely congenital variation. Sellar/suprasellar region demonstrated no gross masses. Craniocervical junction is intact and normal. Small cavum septum pellucidum, congenital. Calcified plaques in the cavernous and supraclinoid segments both ICA. No air-fluid levels in the included paranasal sinuses. Tympanic cavities and mastoid air cells are aerated. No gross masses the intraconal or extraconal compartments of the orbits. CT/CT head/brain wo IV con IMPRESSION: No acute intracranial hemorrhage or acute brain abnormality by CT. Electronically signed by: Tanner Darling MD 11/08/2024 08:47 AM [facility]
--- OUTSIDE RECORDS SUMMARY | 2024-11-08 07:36 | XMS_ITS | Patient Health Record ---
[facility] Address [address] 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
== END 2024-11-08 07:34 | disposition home or self-care (01) ==
LOC: HO.CT 07:33
PROVIDERS: PCP Internal Medicine; Visit Provider Physician Assistant Medical
DX: R42 Dizziness and giddiness (principal)
CPT/HCPCS: 70450

== ENCOUNTER → 2024-11-08 07:35 | Outpatient (BNV) | payer OTHER, SELFPAY | PROVIDERS: PCP Internal Medicine; Visit Provider Radiology Diagnostic Radiology | DX: R42 Dizziness and giddiness (principal) | CPT/HCPCS: 70450 ==

== ENCOUNTER 2024-11-13 10:00 | Outpatient (RCR) | payer OTHER, SELFPAY ==
[2024-11-08 12:03] VITALS: BP 149/88; PULSE 80
--- NOTE | 2024-11-08 12:59 | MHC.PT.EP ---
[facility] [place] Office [place] Office [place] Office [address] Joenl Culp [address] [phone] F: [phone] F: [phone] F: [phone] F: [phone] Physical Therapy Plan of Care Date of Evaluation: Date of Surgery: Diagnosis: dizziness and giddiness benign paroxsymal vertigo Assessment: 64 y/o female referred to PT with BPPV. Reports room-spinning dizziness that lasts a few seconds with rolling in bed, bending forward, grooming, and moving head quickly. Examination shows normal oculomotor, normal static balance, good gait pattern and positive for R PC BPPV. Performed Jing and upon re-test, she was negative for nystagmus and sx. Performed a precautionary Jing. Will test all canals next visit. Frequency and Duration: The patient will be seen 2x/week for 4 weeks Short Term Goals: Fdc Goals: Pt will be (-) for nystagmus of reports of vertigo in all diagnostic directions B to resolutions of BPPV Tolerate position changes without complaints vertigo to improve safety and return to pre-onset level Pt to be able to functionally move in all planes without provocation of dizziness and return to PLOF Pt to be educated on sx and indications to return to therapy when needed in 4 weeks Treatment Plan: Modalities to reduce pain, spasms and effusion. Manual therapy to restore motion and function. Therapeutic exercise to improve strength and flexibility. Neuromuscular re-education for posture and balance. Therapeutic activities to return to functional activities of daily living. Electronically signed by: Juliet Mercedes PT Please sign and return to therapist. Thank you for your referral.
--- NOTE | 2024-12-14 08:10 | MHC.PT.DC ---
[facility] [place] Office [place] Office [place] Office [address] Jonel Culp [address] [phone] F: [phone] F: [phone] F: [phone] F: [phone] Physical Therapy Discharge Report Diagnosis: dizziness and giddiness benign paroxsymal vertigo Date of Surgery: Date of Evaluation: 11/08/24 Date of Discharge: 12/14/24 Treatments to Date: 2 Cancellations to Date: 0 No Shows to Date: 0 Discharge Status: Achieved Goals Improved Function Discharge Summary: Pt was treated for BPPV and upon re-assessment, negative for BPPV. Kept chart open for 30 days in case of recurrence and will now close chart Electronically signed by: Juliet Mercedes PT Please sign and return to therapist. Thank you for your referral.
== END 2024-12-14 08:10 | disposition home or self-care (01) ==
LOC: HO.PT 10:00
PROVIDERS: PCP Internal Medicine; Visit Provider Physician Assistant Medical
DX: R42 Dizziness and giddiness (principal)
CPT/HCPCS: 95992; 97162

== ENCOUNTER 2025-01-08 09:38 | Outpatient (AMB) | payer OTHER, SELFPAY ==
--- NOTE | 2025-01-08 09:50 | A.OFFVIS_ITS ---
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 Gonsalez for persistent headache Accompanied by: Self / Same As Patient Allergies codeine Allergy (Unknown, Verified 01/08/25 09:57) vomitting Medication List - Last Reconciled 01/08/25 by JEANETTE Alcantara amitriptyline 25 mg PO BEDTIME bygjsoubhg-qclnekweblkpt-lfee 50-325-40 mg 1 tab PO Q6H PRN 30 days ibuprofen 800 mg PO Q8H PRN 30 days omeprazole 20 mg PO DAILY ondansetron HCl 4 mg PO Q8H PRN ropinirole 0.5 mg PO BEDTIME scopolamine base 1 patch transdermal Q3D PRN 7 days sennosides (Senna Laxative) 8.6 mg PO BEDTIME PRN 30 days sumatriptan succinate 25 mg PO Q2-4H PRN 30 days HPI Comments Details: Right-handed 64-yr-old female presents to [facility] here for migraine headache and sleep disorder management. Patient was previously seen by Dr. Chambers in October of 2021 for sleep evaluation with migraine headache. Pt reports she has had bothersome headaches for a long time. States her headache frequency had increased, but more recently headache frequency has improved. In the summer, tends to have more headaches. Patient reports she is still having bothersome snoring and fragmented sleep, her frequently wakes her up at night as she is not breathing well and the snoring is worrying him. She also reports restless leg symptoms, which are managed with ropinirole 0.5 mg at bedtime. Her restless leg symptoms are an urge to move. She denies creepy crawling sensation or leg cramps. Her last home sleep study in 09/10/2021 which was inconclusive with AHI 4.6/hr and, O2 octavia 76%. She had been advised to undergo follow-up in-lab sleep study, however she never did this as she felt that she would not be able to sleep outside of her home. She would like to try different type of testing. She has never seen ENT. PMH and ROS are notable for:? HEENT: snoring Nuero: dizziness- resolved w/ vestibular PT. denies numbness tingling. Musculoskeletal disorders or injury: denies History of concussion/head injury: denies Mood d/o: denies Respiratory d/o: denies CV disease: HLD- pt states she was unaware. Denies chest pain, shortness of breath, swelling. Clotting or hematology d/o: denies Endocrine or metabolic d/o: denies History of seizure: denies. 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 Age/time of onset: unsure exactly- but a long time ago Preceding causes: none Previous work-up: 11/08/2024, CT head w/o- ordered for dizziness workup, did not show any acute findings, however did show calcified plaques in the cavernous and supraclinoid segments of bilateral ICA. Types of headache disorders: 1 Typical headache characteristics: Prodrome symptoms: unsure Aura: denies Pain intensity: starts as mild and becomes severe (if does not take acute tx). Location, quality, characteristics: Bitemporal pounding Associated symptoms: photophobia, phonophobia, nausea, vomiting- if this occurs- the headache will resolve,fatigue, cognitive difficulties, activity intolerance, Postdrome: sometimes a hangover feeling Triggers: heat Time of day: No specific time of day Duration and Frequency: With treatment and sleep x's 1-2 hours- and then headcahe has resolved. Without treatment- hours, but less than a whole day. Currently not frequently. How does headache impact your life? Rarely has had to miss work. Current acute medication use/interventions: Fioricet 1 tab- helps, but sometimes needs to take a 2nd dose. Tolerates well. Current preventative medication use: Denies Current non-pharmacological interventions: Sleep. [facility] Medical History Sleep disturbance Snoring Immunization history incomplete Physical exam Insomnia Restless leg syndrome Migraines Surgical History H/O abdominoplasty H/O: Family History Father Diabetes Mother Diabetes Hypertension Dementia Brother In good health Sister In good health Son In good health Daughter In good health Social History Household Members: Significant Other Housing: House Alcohol intake: current Alcohol intake frequency: holidays/special occasions only Alcohol type: beer Patient Tobacco Use Status: Former Tobacco user e-Cigarette/Vaping Use: Never Used Second Hand Smoke Exposure: No service: No Current occupational status: 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 No palpable scalp tenderness. Mild bilateral TMJ tightness without crepitus. Very mild signs of lower teeth wearing. Mild bilateral posterior cervical tightness without tenderness. Good overall cervical range of motion General: patient oriented x3 Cranial nerves: Yes CN's II-XII intact bilaterally Cognition (Neuro): normal cognition Gait exam (Neuro): Normal gait present Motor exam (neuro): 5/5 motor strength present throughout Deep tendon reflexes (DTR's): Right triceps reflex intensity grade: 2+, Left triceps reflex intensity grade: 2+, Rt Biceps (C5, C6): 2+, Left biceps reflex intensity grade: 2+, Right brachioradialis reflex intensity grade: 2+, Left brachioradialis reflex intensity grade: 2+, Right patellar reflex intensity grade: 2+ and Left patellar reflex intensity grade: 2+ Coordination: [id number]-kw-[id number] test normal, tandem gait normal and Romberg test negative Pupils: Normal pupillary reactivity/response: bilateral Psych Appearance: grossly normal Mental Status: mental status grossly normal Speech and movement: Normal speech and movement present Affect: normal affect Attitude: cooperative Thought process: Normal thought process present Results Reviewed Results Reviewed: 10/20/2024, US/US carotid duplex BI IMPRESSION: 1. Findings consistent with 0-49% stenosis of the right internal carotid artery. 2. Normal ultrasound of the left internal carotid artery. 11/08/2024, CT/CT head/brain wo IV con Indication: dizziness IMPRESSION: No acute intracranial hemorrhage or acute brain abnormality by CT. Small cavum septum pellucidum, congenital. Calcified plaques in the cavernous and supraclinoid segments both ICA. Assessment & Plan Assessment & Plan (1) Snoring: Code(s): R06.83 - Snoring Category: Medical (2) Sleep disturbance: Code(s): G47.9 - Sleep disorder, unspecified Category: Medical (3) Excessive daytime sleepiness: Code(s): G47.19 - Other hypersomnia Category: Medical (4) Restless leg syndrome: Code(s): G25.81 - Restless legs syndrome Category: Medical (5) Migraine without aura: Code(s): G43.009 - Migraine without aura, not intractable, without status migrainosus Category: Medical Plan For sleep, snoring, and restless leg symptoms: We will order a home sleep study to assess status of snoring, nocturnal hypoxemia, to assess for sleep apnea. She is open to trying PAP therapy of sleep study does show sleep apnea. We will request a ENT (ears nose and throat) consult to evaluate for alternate snoring treatments. Fasting lab work-up- to assess for underlying etiologies Continue ropinirole 0.5 mg daily at bedtime. Try to sleep with head elevated, could consider using a wedge pillow to support head elevation while asleep. You may benefit from reading ?navigating life with restless leg syndrome? by Dr. Thien Frias. For overall headache management: * Optimize good self-care, including but not limited to maintaining a healthy diet, adequate fluid intake, adequate sleep, and engaging in regular physical activity. * Track headaches, especially after any treatment regimen changes. [employer] Semi is one of many headache tracking apps. * Information shared on non-pharmacological interventions which may help to alleviate headache attack burden. * Fasting lab work-up to assess for underlying etiologies in setting of hyperlipidemia For acute headache treatment: Is important to take acute medications at the first sign of headache, however it is advisable to avoid acute medication overuse (especially with combined headache medications). May continue Fioricet 1-2 tabs as needed onset of headache. Previous acute migraine medication trials: None other. Sumatriptan is on medication list- however patient has not likely try this yet. Acute migraine medication contraindications: Would avoid triptans or DHE pending further evaluation of hyperlipidemia. For headache prevention medication: Preventative medications should be taken routinely as prescribed for best effect, it may take several weeks for full effect to take effect. Start Riboflavin 400mg qam Start Magnesium 400mg qhs Previous migraine prevention medication trials: Amitriptyline 25 mg-ineffective in patient has stopped taking it. Migraine prevention medication contraindications: None at this time Will follow-up upon review of above and patient to follow-up in clinic in 6 months or sooner prn. Orders: Orders 2 RT home sleep study Today G47.19 - Other hypersomnia, G47.9 - Sleep disorder, unspecified, R06.83 - Snoring IRON PROFILE Today D64.9 - Anemia, unspecified, E78.5 - Hyperlipidemia, unspecified, G25.81 - Restless legs syndrome, K21.9 - Gastro-esophageal reflux disease without esophagitis Ferritin Today D64.9 - Anemia, unspecified, E78.5 - Hyperlipidemia, unspecified, G25.81 - Restless legs syndrome, K21.9 - Gastro-esophageal reflux disease without esophagitis TSH reflex Free T4 Today D64.9 - Anemia, unspecified, E78.5 - Hyperlipidemia, unspecified, G25.81 - Restless legs syndrome, K21.9 - Gastro-esophageal reflux disease without esophagitis Vitamin B6 Today D64.9 - Anemia, unspecified, E78.5 - Hyperlipidemia, unspecified, G25.81 - Restless legs syndrome, K21.9 - Gastro-esophageal reflux disease without esophagitis Lipid Panel with Reflex Today D64.9 - Anemia, unspecified, E78.5 - Hyperlipidemia, unspecified, G25.81 - Restless legs syndrome, K21.9 - Gastro- esophageal reflux disease without esophagitis Complete Blood Count Auto Diff Today D64.9 - Anemia, unspecified, E78.5 - Hyperlipidemia, unspecified, G25.81 - Restless legs syndrome, K21.9 - Gastro- esophageal reflux disease without esophagitis Comprehensive Met. Panel Today D64.9 - Anemia, unspecified, E78.5 - Hyperlipidemia, unspecified, G25.81 - Restless legs syndrome, K21.9 - Gastro- esophageal reflux disease without esophagitis Vitamin B12 and Folate Today D64.9 - Anemia, unspecified, E78.5 - Hyperlipidemia, unspecified, G25.81 - Restless legs syndrome, K21.9 - Gastro- esophageal reflux disease without esophagitis Vitamin D 25-OH (D2 and D3) Today D64.9 - Anemia, unspecified, E78.5 - Hyperlipidemia, unspecified, G25.81 - Restless legs syndrome, K21.9 - Gastro- esophageal reflux disease without esophagitis Hemoglobin A1c Today D64.9 - Anemia, unspecified, E78.5 - Hyperlipidemia, unspecified, G25.81 - Restless legs syndrome, K21.9 - Gastro-esophageal reflux disease without esophagitis Lyme IgG/IgM w/reflex to WB Today D64.9 - Anemia, unspecified, E78.5 - Hyperlipidemia, unspecified, G25.81 - Restless legs syndrome, K21.9 - Gastro- esophageal reflux disease without esophagitis NARGIS Reflex Titer and Pattern Today D64.9 - Anemia, unspecified, E78.5 - Hyperlipidemia, unspecified, G25.81 - Restless legs syndrome, K21.9 - Gastro- esophageal reflux disease without esophagitis Rheumatoid Factor Today D64.9 - Anemia, unspecified, E78.5 - Hyperlipidemia, unspecified, G25.81 - Restless legs syndrome, K21.9 - Gastro-esophageal reflux disease without esophagitis Referrals 2 Ear/Nose/Throat Referral G47.19 - Other hypersomnia, R06.83 - Snoring Medications: New 2 riboflavin (vitamin B2) 400 mg PO DAILY 30 days 30 tabs 6RF magnesium oxide may hold for loose stools 400 mg PO BEDTIME 30 days 30 tabs 6RF Discontinued 2 scopolamine base Discontinued Reason: Patient no longer taking 1 patch transdermal Q3D 7 days PRN 4 ea 0RF nausea and vomiting Coding Level of Care Code New Pt Level 4 (88618) Diagnoses Snoring R06.83 Sleep disturbance G47.9 Excessive daytime sleepiness G47.19 Restless leg syndrome G25.81 Migraine without aura G43.009 Evans Sleepiness Scale Questions Sitting and reading: moderate chance of dozing Watching TV: moderate chance of dozing Sitting inactive in a theater, movie etc.: moderate chance of dozing As a passenger in a car for an hour without break: moderate chance of dozing Lying down in the afternoon when circumstances permit: moderate chance of dozing Sitting and talking to someone: would never doze Sitting quietly after lunch without alcohol: moderate chance of dozing In a car, while stopped for a few minutes in the traffic: would never doze ESS < 10: normal, ESS > 12: pathologic: 12
[2025-01-08 09:52] VITALS: BP 120/82; PULSE 80; O2SAT 96; BMI 26.8
--- OUTSIDE RECORDS SUMMARY | 2025-01-08 10:45 | XMS_ITS | Patient Health Record ---
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
== END 2025-01-08 11:12 | disposition home or self-care (01) ==
LOC: HO.HSMS 09:38
PROVIDERS: PCP Internal Medicine; Visit Provider Nurse Practitioner Family
DX: R06.83 Snoring (principal); G47.9 Sleep disorder, unspecified; G47.19 Other hypersomnia; G25.81 Restless legs syndrome; G43.009 Migraine without aura, not intractable, without status migrainosus
CPT/HCPCS: 99204

== ENCOUNTER 2025-02-10 08:50 | Outpatient (REF) | payer OTHER, SELFPAY | END 2025-02-10 08:51 | disposition home or self-care (01) | LOC: HO.MAMMO 08:50 | PROVIDERS: PCP Internal Medicine; Visit Provider Internal Medicine | DX: Z12.31 Encounter for screening mammogram for malignant neoplasm of breast (principal) | CPT/HCPCS: 77063; 77067 ==

== ENCOUNTER → 2025-02-10 09:00 | Outpatient (BNV) | payer OTHER, SELFPAY | PROVIDERS: PCP Internal Medicine; Visit Provider Internal Medicine | DX: Z12.31 Encounter for screening mammogram for malignant neoplasm of breast (principal) | CPT/HCPCS: 77063; 77067 ==

== ENCOUNTER 2025-03-06 12:20 | Outpatient (AMB) | payer OTHER, SELFPAY ==
--- NOTE | 2025-03-06 12:33 | A.OFFVIS_ITS ---
Vital Signs 03/06/25 12:44 Height 5 ft Weight 138 lb 0.15 oz BMI 27.0 BP 120/78 Blood Pressure Location Lt brachial Position Sitting Pulse 92 Pulse Oximetry (%) 98 Oxygen Delivery Method Room Air Intake Visit Reasons: osteoporosis Intake Note: Patient presents for Osteoporosis. Patient c/o pain on LT elbow, both shoulder, both knees and sometime feel pain on ankles. Is been over four month I been fee ling these symptoms. Patient stated she is not taking any pain medicine. Manager Marketing Required: Yes Manager Marketing Language: Feed Gr[employer]: Manager Marketing Offered & Declined Information Interpreted: non-clinical & clinical Allergies codeine Allergy (Unknown, Verified 03/06/25 12:43) vomitting Medication List - Last Reconciled 03/06/25 by Maria Alejandra Colón MD amitriptyline 25 mg PO BEDTIME yxmeecfddl-vjcfrshyhmszq-akdb 50-325-40 mg 1 tab PO Q6H PRN 30 days ibuprofen 800 mg PO Q8H PRN 30 days magnesium oxide 400 mg PO BEDTIME 30 days omeprazole 20 mg PO DAILY ondansetron HCl 4 mg PO Q8H PRN riboflavin (vitamin B2) 400 mg PO DAILY 30 days ropinirole 0.5 mg PO BEDTIME sennosides (Senna Laxative) 8.6 mg PO BEDTIME PRN 30 days sumatriptan succinate 25 mg PO Q2-4H PRN 30 days HPI Comments Details: Patient is a 64-year-old female with migraines, hyperlipidemia, and BPPV here today to establish care for osteoporosis. Patient had screening DEXA done 09/28/2024 which showed T-score -3.1 at the L- spine Risk Factor Assessment: ? Age: 64 ? Race: ? Menarche: 13-48 ? Family history including hip fracture: Sister with osteoporosis and history of fall with fracture ? Low calcium/vitamin-D intake: poor ? Estrogen deficiency: none ? Sedentary lifestyle: yes ? Cigarette smoking: Quit smoking at age 29. Before that was smoking 1-2 cigarrettes per day for 10 years ? Excessive alcohol: no ? Excessive caffeine: no High-risk medication assessment: - No high risk medications PFSH Medical History Sleep disturbance Snoring Immunization history incomplete Physical exam Insomnia Restless leg syndrome Migraines Surgical History H/O abdominoplasty H/O: Family History Father Diabetes Mother Diabetes Hypertension Dementia Brother In good health Sister In good health Son In good health Daughter In good health Social History Household Members: Significant Other Housing: House Alcohol intake: current Alcohol intake frequency: holidays/special occasions only Alcohol type: beer Patient Tobacco Use Status: Former Tobacco user e-Cigarette/Vaping Use: Never Used Second Hand Smoke Exposure: No service: No Current occupational status: 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: No Hearing needs: No Vision needs: Yes (Glasses) Review of Systems Const Details: Review of Systems Constitutional: Denies fever, chills, weight loss ENT: Denies vision changes, eye pain or eye redness, dental caries, dry mouth GI: Denies nausea, vomiting, diarrhea, abdominal pain, change in BM Pulm: Denies SOB, ROMO, hemoptysis, wheezing Cards: Denies chest pain, palpitations Skin: Denies Raynaud's, rash, nail changes, photosensitivity, WATCH CRYSTAL CUTTER: Denies headaches, weakness, paresthesias, recurrent falls MSK: as per HPI All other systems reviewed and are unremarkable except noted above Physical Exam Vital Signs: Last Vital Signs Pulse 92 03/06/25 12:44 BP 120/78 03/06/25 12:44 Pulse Ox 98 03/06/25 12:44 Oxygen Delivery Method Room Air 03/06/25 12:44 BMI result Body Mass Index 27.0 Vital signs reviewed Physical Examination CONSTITUITIONAL Patient alert and cooperative. Well appearing and in no apparent painful distress HEENT Conjunctiva and sclera clear. No lymphadenopathy. CHEST/RESPIRATORY SYSTEM Normal respiratory effort and able to speak in complete sentences. Clear to auscultation bilaterally. No crackles, rales, rhonchi, wheezes heard. CARDIAC SYSTEM Regular rate and rhythm. S1 and S2 heard no murmurs. Radial pulses intact bilaterally MSK Hands * Right Hand: Able to make a fist. No swelling or tenderness to palpation of these joints. No deformities noted. * Left Hand: Able to make a fist. No swelling or tenderness to palpation of these joints. No deformities noted. * Herbeden's nodes noted Wrists * Right Wrist: Full ROM. 70 degrees of wrist flexion, 80 degrees of wrist extension. No swelling or TTP * Left Wrist: Full ROM. 70 degrees of wrist flexion, 80 degrees of wrist extension. No swelling or TTP Elbows * Right Elbow: Full ROM. No swelling or TTP. No TTP of the medial and lateral epicondyles * Left Elbow: Full ROM. No swelling or TTP. TTP of lateral epicondyle Shoulders * Right shoulder: Full ROM. No swelling noted. No TTP of the AC joint, subacromial bursa or posterior shoulder * Left shoulder: Decreased ROM. No swelling noted. No TTP of the AC joint, subacromial bursa or posterior shoulder Hips * Right hip: Good ROM. No pain elicited with hip flexion/internal rotation/external rotation * Left hip: Good ROM. No pain elicited with hip flexion/internal rotation/external rotation Hip bursa: No tenderness to palpation bilaterally Knees * Right knee: Full ROM. No swelling noted. No TTP of the knee joint lie or pes anserine bursa * Left knee: Full ROM. No swelling noted. No TTP of the knee joint lie or pes anserine bursa. Ankles * Right ankle: Good ankle dorsiflexion and plantar flexion. No swelling. No TTP of the ankle joint * Left ankle: Good ankle dorsiflexion and plantar flexion. No swelling. No TTP of the ankle joint Feet * Right foot: Negative squeeze test * Left foot: Negative squeeze test Tender points? * No tenderness to palpation of the bilateral trapezius, supraspinatus, anterior costochondral junctions, bilateral suboccipital muscle insertions SKIN No rashes Results Reviewed Results Reviewed: Laboratory Tests 08/12/24 09:04 Sodium 141 Potassium 4.3 Chloride 106 Carbon Dioxide 27 BUN 19 H Creatinine 0.91 Calcium 8.8 D AST 20 ALT 21 DEXA 09/2024 FINDINGS: The bone mineral density of the lumbar spine is 0.824 with a T-score of -3.1, and a Z-score of -1.5. The bone mineral density of the left total hip is 0.954 with a T-score of -0.4, and a Z-score of 0.8. The bone mineral density of the left femoral neck is 0.806 with a T-score of -1.7, and a Z-score of -0.2. Assessment & Plan Assessment & Plan (1) Osteoporosis: Comment: DEXA 09/2024. AP spine -3.1, Left hip total -0.4, Left femur neck -1.7 Code(s): M81.0 - Age-related osteoporosis without current pathological fracture Category: Medical Qualifiers: Osteoporosis type: age-related Presence of current pathological fracture: without current pathological fracture Qualified Code(s): M81.0 - Age- related osteoporosis without current pathological fracture Plan: #Osteoporosis Patient is a 64-year-old female with new diagnosis of osteoporosis. Risk factors for osteoporosis include age, family history and early menopause. Given that she only has osteoporosis in the spine we will start with p.o. Alendronate Plan - Alendronate 70mg weekly - Vit D and Calcium supplementation - RTC 6 months - Labs before visit: CMP, Vit D (2) Encounter for monitoring alendronate therapy: Code(s): Z51.81 - Encounter for therapeutic drug level monitoring; Z79.83 - nursing home (current) use of bisphosphonates Plan: #Long-term Use of Bisphosphonates Risks and benefits of bisphosphonates in the management of osteoporosis Benefits include improved bone density, decreased fracture risk Risks include atypical femoral fractures, GI upset, esophageal strictures Contraindicated in patients with a creatinine clearance < 30 to 35 ml/min Keep vitamin-D at least 35 ng/mL Plan I spent 30 minutes reviewing the record and labs, taking a history, examining the patient, discussing the treatment plan, ordering diagnostic work up and documenting in the medical record Orders: Orders Vitamin D 25-OH Total 6 Months M81.0 - Age-related osteoporosis without current pathological fracture Comprehensive Met. 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
[2025-03-06 12:44] VITALS: BP 120/78; PULSE 92; O2SAT 98; BMI 27.0
--- OUTSIDE RECORDS SUMMARY | 2025-03-06 13:50 | XMS_ITS | Patient Health Record ---
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
== END 2025-03-06 13:07 | disposition home or self-care (01) ==
LOC: HO.RHE 12:21
PROVIDERS: PCP Internal Medicine; Visit Provider Student in an Organized Health Care Education/Training Program
DX: M81.0 Age-related osteoporosis without current pathological fracture (principal); Z51.81 Encounter for therapeutic drug level monitoring; Z79.83 Long term (current) use of bisphosphonates
CPT/HCPCS: 99203; G2211

== ENCOUNTER → 2025-04-09 14:48 | Outpatient (REF) | payer OTHER, SELFPAY ==
--- OUTSIDE RECORDS SUMMARY | 2025-04-09 15:21 | XMS_ITS | Patient Health Record ---
Author Organization [facility] Address [address] [place] [address] Care Team Providers Care Zigzagger Name Role Phone Nargis Aviles MD Primary Care Provider Unavail able Alonso Nataliia Unavailable [phone] Allergies Allergen (clinical drug ingredient) Drug/Non Drug Allergy documented on EMR Reaction Allergy Type Onset Date Status codeine Codeine Unknown Drug Allergy Active Reason For Referral No Information Medications Medication SIG (Take, Route, Frequency, Duration) Notes Start Date End Date Status Amitriptyline HCl 25 MG 1 tablet at bedt greg Orally Once a day; Duration: 30 day(s) Active Butalbital-Acetaminophen 50-325 MG 1 tablet as needed Orally every 4 hrs Not-Taking rOPINIRole HCl 0.5 MG 1 tablet 1 to 3 ho urs before bedtime Orally Once a day; Duration: 30 day(s) Active Social History Tobacco Use: [...] Problem Status W/U Status Risk Notes Problem Acosta's metatarsalgia (disorder) (17346305) 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
== END ==
LOC: HO.SL 14:48
PROVIDERS: PCP Internal Medicine; Visit Provider Nurse Practitioner Family
DX: R06.83 Snoring (principal); G47.19 Other hypersomnia; G47.9 Sleep disorder, unspecified
CPT/HCPCS: 95806

== ENCOUNTER → 2025-04-09 15:03 | Outpatient (BNV) | payer OTHER, SELFPAY | PROVIDERS: PCP Internal Medicine; Visit Provider Psychiatry & Neurology Neurology | DX: G47.19 Other hypersomnia (principal); R06.83 Snoring | CPT/HCPCS: 95806 ==

== ENCOUNTER 2025-05-28 10:36 | Outpatient (AMB) | payer OTHER, SELFPAY ==
--- NOTE | 2025-05-28 10:40 | A.OFFVIS_ITS ---
Vital Signs 05/28/25 10:41 Height 5 ft Weight 138 lb BMI 26.9 BP 137/88 Blood Pressure Location Lt brachial Position Sitting Pulse 87 Intake Visit Reasons: f/u r/s 01/22/25 Intake Note: Crystal presents in the office as a follow up for her colonnoscopy CC: States that she feels okay but when she was put to sleep for procedure she threw up bilious fluid. Auto Service Dispatcher Required: No Allergies codeine Allergy (Unknown, Verified 03/06/25 12:43) vomitting HPI HPI f/u r/s 01/22/25: Details: 65 yr old f here for f/u she has issue with regurgitation with water, she can have vomiting--going on for years sometimes with sleeping can have choking and bad taste no nausea no abdominal pain she has a lot of reflux sx she takes omeprazole - not working for her no issues with bowels no blood in stool non smoker rarely takes nsaid, maybe once a month EXAM: GENERAL: The patient is well developed and nontoxic. VITAL SIGNS:see workflow HEENT: Nonicteric sclerae, PERRLA, EOMI. Oropharynx clear. Moist mucous membranes. Conjunctivae appear well perfused. No thyroid mass. CHEST: Chest wall is nontender. HEART: Regular rate and rhythm without murmurs. LUNGS: Clear to auscultation bilaterally. ABDOMEN: Soft, positive bowel sounds, nontender, no organomegaly.no flank tenderness SKIN: No rash, no excessive bruising, petechiae, or purpura. NEUROLOGIC: Cranial nerves II-XII intact without motor/sensory deficit. Psych: normal affect A/P: 1/ GERD, not controlled with low dose PPI PLAN: 1/ check h pylori 2/ get EGD for further assessment 3. sent trial of zofran for her nausea, she has been inducing some vomiting when gets too nausea, PFSH Medical History Sleep disturbance Snoring Immunization history incomplete Physical exam Insomnia Restless leg syndrome Migraines Surgical History (Updated 05/28/25 @ 10:41 by ERIC Worthington) Hx of colonoscopy H/O abdominoplasty H/O: Family History Father Diabetes Mother Diabetes Hypertension Dementia Brother In good health Sister In good health Son In good health Daughter In good health Social History Household Members: Significant Other Housing: House Alcohol intake: current Alcohol intake frequency: holidays/special occasions only Alcohol type: beer Patient Tobacco Use Status: Former Tobacco user e-Cigarette/Vaping Use: Never Used Second Hand Smoke Exposure: No service: No Current occupational status: 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: No Hearing needs: No Vision needs: Yes (Glasses) Physical Exam Vital Signs: Last Vital Signs Pulse 87 05/28/25 10:41 BP 137/88 05/28/25 10:41 BMI result Body Mass Index 26.9 Assessment & Plan Assessment & Plan (1) Chronic GERD: Code(s): K21.9 - Gastro-esophageal reflux disease without esophagitis Category: Medical Plan: as above Orders: Orders H Pylori Breath Test Today Referrals GI Procedure Notification K21.9 - Gastro-esophageal reflux disease without esophagitis Medications: New ondansetron 4 mg PO Q8H PRN 20 tabs 0RF nausea and vomiting Coding Level of Care Code Est Pt Level 3 (46915) Diagnoses Chronic GERD K21.9
[2025-05-28 10:41] VITALS: BP 137/88; PULSE 87; BMI 26.9
--- OUTSIDE RECORDS SUMMARY | 2025-05-28 13:41 | XMS_ITS | Patient Health Record ---
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
== END 2025-05-28 10:59 | disposition home or self-care (01) ==
LOC: HO.HGI 10:36
PROVIDERS: PCP Internal Medicine; Visit Provider Internal Medicine Gastroenterology
DX: K21.9 Gastro-esophageal reflux disease without esophagitis (principal)
CPT/HCPCS: 99213

== ENCOUNTER 2025-06-14 07:28 | Outpatient (REF) | payer OTHER, SELFPAY | END 2025-06-14 07:29 | disposition home or self-care (01) | LOC: HO.LNP 07:28 | PROVIDERS: PCP Internal Medicine; Visit Provider Internal Medicine Gastroenterology | DX: Z11.0 Encounter for screening for intestinal infectious diseases (principal) | CPT/HCPCS: 83013 ==

== ENCOUNTER 2025-06-14 07:28 | Outpatient (AMB) | payer OTHER, SELFPAY ==
--- NOTE | 2025-06-14 07:32 | AM.OFFVISNUR ---
Intake Visit Reasons: h pylori Intake Note: Patient presents for collection of?H Pylori?breath test. Patient has been fasting for 1 hour (nothing to eat, drink, no chewing gum or smoking) has not taken any antacid medication for at least 2 weeks and has no allergies to artificial sweeteners.?? Allergies codeine Allergy (Unknown, Verified 03/06/25 12:43) vomitting Assessment & Plan Assessment & Plan (1) Chronic GERD: Code(s): K21.9 - Gastro-esophageal reflux disease without esophagitis Category: Medical Plan Patient presents for collection of?H Pylori?breath test. Patient has been fasting for 1 hour (nothing to eat, drink, no chewing gum or smoking) has not taken any antacid medication for at least 2 weeks and has no allergies to artificial sweeteners.???This test checks for an overgrowth of bacteria in your stomach. We all have bacteria but some may have more than others. It is treatable. if the test comes back negative there is nothing else to do. If the test result is positive we will treat you with 2 antibiotics and a medication to decrease the acid in your stomach (PPI) for 2 weeks. Two weeks after you have completed the treatment we will retest you to make sure the overgrowth has resolved. Patient Instructions: Process for specimen collection and reason for testing was explained to the patient. Specimen collection. Patient instructed to take a deep breath and then exhale into the blue bag, filling it up as much as possible. Patient instructed to drink a mixture of water and the artificial sweetener with a straw. A 15 minute wait period was observed. Patient instructed to take a deep breath and then exhale into the pink bag, filling it up as much as possible. Coding Level of Care Code Established Pt Est Pt Level 1 (82997) Patient Type Established Medical Decision Making Straight Forward Diagnoses Chronic GERD K21.9
--- OUTSIDE RECORDS SUMMARY | 2025-06-14 07:32 | XMS_ITS | Patient Health Record ---
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 [place] [phone] [id number] Crystal Randall Self - patient is the insured Medical (General) History Medical History History ICD Code Insomnia Restless leg syndrome sleep disturbances Headaches/Migraines Surgical History Surgery Date(Month/Year)
== END 2025-06-14 07:39 | disposition home or self-care (01) ==
LOC: HO.HGI 07:29
PROVIDERS: PCP Internal Medicine; Visit Provider Internal Medicine Gastroenterology
DX: K21.9 Gastro-esophageal reflux disease without esophagitis (principal)
CPT/HCPCS: 99499

== ENCOUNTER 2025-07-02 10:39 | Outpatient (AMB) | payer OTHER, SELFPAY ==
[2025-07-02 10:40] VITALS: BP 130/94; PULSE 76; TEMP 36.8; O2SAT 98; BMI 27.9
--- NOTE | 2025-07-02 10:40 | AM.OFFWIN_ITS ---
Intake Vital Signs 07/02/25 10:40 Height 5 ft Weight 143 lb BMI 27.9 BP 130/94 H Blood Pressure Location Rt brachial Position Sitting Pulse 76 Pulse Source Pulse Oximeter Temp 98.2 F Temp Source Oral Pulse Oximetry (%) 98 Oxygen Delivery Method Room Air Intake Visit Reasons: EP HPylori meds not working Intake Note: Patient presents with c/o abdominal pain & vomiting after taking H. Pylori medications (Metronidazole, tetracycline & pantoprzole). Patient Tobacco Use Status: Former Tobacco user Allergies codeine Allergy (Unknown, Verified 07/02/25 10:43) vomitting Do you need a note to return to daycare/school/sports/work: Yes HPI HPI Comments History of Present Illness Details History of Present Illness - The patient is a 65-year-old female pr esenting with symptoms related to Helicobacter pylori infection and associated treatment side effects. - She was seen by her GI and diagnosed w ith h pylori on 06/20 and prescribed antibiotics. - She reports nausea, vomiting, and bloa ting, attributing these symptoms to the medication prescribed for Helicobacter pylori infection. - The patient experiences weakness and f requent bathroom use, which she associates with the infection and its treatment. - She has been prescribed metronidazole, tetracycline, and pantoprazole, but reports difficulty adhering to the dosing schedule due to side effects. - The patient has a history of vaginal y east infections, which are improving with treatment. - She also reports hemorrhoids, with occ asional bleeding noted when wiping. - She denies melena, hematochezia, fever , chills, CP, or SOB. Physical Exam General: Cooperative, healthy appearing, comfortable, no acute distress and well developed Orientation: Patient oriented x3 Respiratory: Normal respiratory effort and able to speak in complete sentences. Clear to auscultation bilaterally. No w/r/r noted. Cardiovascular: Regular rate and rhythm. Normal S1 and S2. No m/r/g noted. GI: Normal to inspection. Soft, distended, hypoactive BS noted. TTP of the epigastric region with mild guarding noted. No rebound tenderness noted. Negative Burt. Negative CVA. Negative psoas and obturator noted. Skin: No rashes or lesions noted Patient was informed and verbally consented to the use of an ambient scribe for clinic note documentation during this visit. [facility] Medical History Sleep disturbance Snoring Immunization history incomplete Physical exam Insomnia Restless leg syndrome Migraines Surgical History (Updated 05/28/25 @ 10:41 by ERIC Worthington) Hx of colonoscopy H/O abdominoplasty H/O: Family History Father Diabetes Mother Diabetes Hypertension Dementia Brother In good health Sister In good health Son In good health Daughter In good health Social History Household Members: Significant Other Housing: House Alcohol intake: current Alcohol intake frequency: holidays/special occasions only Alcohol type: beer Patient Tobacco Use Status: Former Tobacco user e-Cigarette/Vaping Use: Never Used Second Hand Smoke Exposure: No service: No Current occupational status: 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: No Hearing needs: No Vision needs: Yes (Glasses) Review of Systems Const All systems reviewed & are unremarkable except as noted in HPI and below Physical Exam Vital Signs: Last Vital Signs Temp 98.2 F 07/02/25 10:40 Pulse 76 07/02/25 10:40 BP 130/94 H 07/02/25 10:40 Pulse Ox 98 07/02/25 10:40 Oxygen Delivery Method Room Air 07/02/25 10:40 BMI result Body Mass Index 27.9 Assessment & Plan Assessment & Plan (1) Nausea vomiting and diarrhea: (2) H. pylori infection: Code(s): A04.8 - Other specified bacterial intestinal infections (3) Vaginal itching: Code(s): N89.8 - Other specified noninflammatory disorders of vagina Plan Most likely h pylori infection Pt now has a yeast infection plan- 1. Helicobacter Pylori Infection - Continue antibiotic regimen including metronidazole, tetracycline, and pantoprazole as prescribed to ensure eradication of the infection. - Use antiemetic medication such as Zofran to manage nausea associated with the antibiotic regimen. - Follow a bland diet to minimize gastrointestinal irritation and support treatment adherence. - Plan for retesting of Helicobacter pylori infection after completion of the treatment course. 2. Vaginal Yeast Infection - Prescribe oral antifungal medication to address the yeast infection. Medications: New fluconazole may repeat second dose 72 hrs after first dose if symptoms persist 150 mg PO Q3D 2 tabs 0RF Coding Level of Care Code Est Pt Level 4 (74068) Diagnoses Nausea vomiting and diarrhea H. pylori infection A04.8 Vaginal itching N89.8
--- OUTSIDE RECORDS SUMMARY | 2025-07-02 12:46 | XMS_ITS | Patient Health Record ---
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
== END 2025-07-02 11:07 | disposition home or self-care (01) ==
PROVIDERS: PCP Internal Medicine; Visit Provider Physician Assistant Medical
DX: A04.8 Other specified bacterial intestinal infections (principal); N89.8 Other specified noninflammatory disorders of vagina

== ENCOUNTER 2025-07-10 11:28 | Outpatient (AMB) | payer OTHER, SELFPAY ==
--- NOTE | 2025-07-10 11:34 | A.OFFVIS_ITS ---
Vital Signs 3 07/10/25 11:37 Height 5 ft Weight 146 lb BMI 28.5 BP 120/60 Blood Pressure Location Rt brachial Position Sitting Pulse 89 Pulse Source Pulse Oximeter Pulse Oximetry (%) 96 Oxygen Delivery Method Room Air Intake Visit Reasons: 6 mo follow up Intake Note: referred in house by Dr. 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 Accompanied by: Self / Same As Patient Allergies codeine Allergy (Unknown, Verified 07/10/25 11:38) vomitting Medication List - Last Reconciled 07/10/25 by JEANETTE Alcantara alendronate 70 mg PO QWEEK amitriptyline 25 mg PO BEDTIME bismuth subsalicylate 2 tabs PO QID 14 days muwkzbxbwz-qecutnwaoqkjt-olbr 50-325-40 mg 1 tab PO Q6H PRN 30 days calcium carbonate-vitamin D3 600 mg-25 mcg (1,000 unit) 1 cap PO BID 90 days fluconazole 150 mg PO Q3D ibuprofen 800 mg PO Q8H PRN 30 days magnesium oxide 400 mg PO BEDTIME 30 days metronidazole 500 mg PO TID 14 days omeprazole 20 mg PO DAILY ondansetron 4 mg PO Q8H PRN ondansetron HCl 4 mg PO Q8H PRN pantoprazole 20 mg PO BID 2 weeks riboflavin (vitamin B2) 400 mg PO DAILY 30 days ropinirole 0.5 mg PO BEDTIME sennosides (Senna Laxative) 8.6 mg PO BEDTIME PRN 30 days sumatriptan succinate 25 mg PO Q2-4H PRN 30 days tetracycline 500 mg PO Q6H 14 days HPI Comments Details: Right-handed 64-yr-old female presents for follow-up for migraine headache and sleep disorder management. She is currently being treated for H. Pylori, and notes that she has difficulty tolerating the ABT regimen. She was asked to hold the B2 and Mag. She is waking up with a headache every 1-2 weeks, which responds quickly to Fioricet. She is taking amitriptyline qhs, which has been helpful. She is complaint w/ ropinirole for RLS- with good effect. She denies compulsive behaviors, but thinks she eats too much. She reports she is still snoring a lot even when trying many wound OTC interventions, such as sleeping with a sleep apnea pillow and using anti snoring devices. She has not yet heard from the ENT office which we referred her during her last visit here in December. After review of the HST results, which were inconclusive, patient was advised to undergo a follow-up in-lab PSG, which is scheduled for August 13. April 09 2005, HST results were inconclusive with AHI 4.1 per hour, O2 octavia 82%, and average SpO2 94%. 01/08/2025, HPI: Right-handed 64-yr-old female presents to reestablish care here for migraine headache and sleep disorder management. Patient was previously seen by Dr. Chambers in October of 2021 for sleep evaluation with migraine headache. Pt reports she has had bothersome headaches for a long time. States her headache frequency had increased, but more recently headache frequency has improved. In the summer, tends to have more headaches. Patient reports she is still having bothersome snoring and fragmented sleep, her frequently wakes her up at night as she is not breathing well and the snoring is worrying him. She also reports restless leg symptoms, which are managed with ropinirole 0.5 mg at bedtime. Her restless leg symptoms are an urge to move. She denies creepy crawling sensation or leg cramps. Her last home sleep study in 09/10/2021 which was inconclusive with AHI 4.6/hr and, O2 octavia 76%. She had been advised to undergo follow-up in-lab sleep study, however she never did this as she felt that she would not be able to sleep outside of her home. She would like to try different type of testing. She has never seen ENT. PMH and ROS are notable for:? HEENT: snoring Nuero: dizziness- resolved w/ vestibular PT. denies numbness tingling. Musculoskeletal disorders or injury: denies History of concussion/head injury: denies Mood d/o: denies Respiratory d/o: denies CV disease: HLD- pt states she was unaware. Denies chest pain, shortness of breath, swelling. Clotting or hematology d/o: denies Endocrine or metabolic d/o: denies History of seizure: denies. History of syncope: denies History of drop attacks: denies : remote h/o of kidney stones- used to drink a lot of soda GI d/o: GERD, Constipation: SAFETY FIRE BOSS: post-menopausal Family history of migraine or other headache disorder: her dtr Lifestyle considerations: Sleep routine: Usual bedtime: 10:30-11pm and wake-up time: 6-7am Sleep difficulties: Endorses: Fragmented sleep, Snoring, Excessive daytime sleepiness, Apneas, Gasping Arousals, Restless sleep Caffeine use: None Nutrition: September eats a healthy diet Substance use: Occasional social alcohol- 1 beer a month Exercise:?None- but active at work 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 Age/time of onset: unsure exactly- but a long time ago Preceding causes: none Previous work-up: 11/08/2024, CT head w/o- ordered for dizziness workup, did not show any acute findings, however did show calcified plaques in the cavernous and supraclinoid segments of bilateral ICA. Types of headache disorders: 1 Typical headache characteristics: Prodrome symptoms: unsure Aura: denies Pain intensity: starts as mild and becomes severe (if does not take acute tx). Location, quality, characteristics: Bitemporal pounding Associated symptoms: photophobia, phonophobia, nausea, vomiting- if this occurs- the headache will resolve,fatigue, cognitive difficulties, activity intolerance, Postdrome: sometimes a hangover feeling Triggers: heat Time of day: No specific time of day Duration and Frequency: With treatment and sleep x's 1-2 hours- and then headcahe has resolved. Without treatment- hours, but less than a whole day. Currently not frequently. How does headache impact your life? Rarely has had to miss work. Current acute medication use/interventions: Fioricet 1 tab- helps, but sometimes needs to take a 2nd dose. Tolerates well. Current preventative medication use: Denies Current non-pharmacological interventions: Sleep. [facility] Medical History (Updated 07/10/25 @ 12:22 by JEANETTE Alcantara) Sleep disturbance Snoring Immunization history incomplete Physical exam Insomnia Restless leg syndrome Migraines Surgical History Hx of colonoscopy H/O abdominoplasty H/O: Family History Father Diabetes Mother Diabetes Hypertension Dementia Brother In good health Sister In good health Son In good health Daughter In good health Social History Household Members: Significant Other Housing: House Alcohol intake: current Alcohol intake frequency: holidays/special occasions only Alcohol type: beer Patient Tobacco Use Status: Former Tobacco user e-Cigarette/Vaping Use: Never Used Second Hand Smoke Exposure: No service: No Current occupational status: 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: No Hearing needs: No Vision needs: Yes (Glasses) Physical Exam Vital Signs: Last Vital Signs Pulse 89 07/10/25 11:37 BP 120/60 07/10/25 11:37 Pulse Ox 96 07/10/25 11:37 Oxygen Delivery Method Room Air 07/10/25 11:37 BMI result Body Mass Index 28.5 Const Orientation/consciousness: patient oriented x3 Resp Effort & Inspection: normal respiratory effort and able to speak in complete sentences Neuro Other: Mallampati stage 4. No palpable scalp tenderness. Mild bilateral TMJ tightness without crepitus. Very mild signs of lower teeth wearing. Mild bilateral posterior cervical tightness without tenderness. Good overall cervical range of motion General: patient oriented x3 Cranial nerves: Yes CN's II-XII intact bilaterally Cognition (Neuro): normal cognition Gait exam (Neuro): Normal gait present Motor exam (neuro): 5/5 motor strength present throughout Deep tendon reflexes (DTR's): Right triceps reflex intensity grade: 2+, Left triceps reflex intensity grade: 2+, Rt Biceps (C5, C6): 2+, Left biceps reflex intensity grade: 2+, Right brachioradialis reflex intensity grade: 2+, Left brachioradialis reflex intensity grade: 2+, Right patellar reflex intensity grade: 2+ and Left patellar reflex intensity grade: 2+ Coordination: [id number]-mu-[id number] test normal, tandem gait normal and Romberg test negative Pupils: Normal pupillary reactivity/response: bilateral Psych Appearance: grossly normal Mental Status: mental status grossly normal Speech and movement: Normal speech and movement present Affect: normal affect Attitude: cooperative Thought process: Normal thought process present Results Reviewed Results Reviewed: Previous workup: 10/20/2024, US/US carotid duplex BI IMPRESSION: 1. Findings consistent with 0-49% stenosis of the right internal carotid artery. 2. Normal ultrasound of the left internal carotid artery. 11/08/2024, CT/CT head/brain wo IV con Indication: dizziness IMPRESSION: No acute intracranial hemorrhage or acute brain abnormality by CT. Small cavum septum pellucidum, congenital. Calcified plaques in the cavernous and supraclinoid segments both ICA. Assessment & Plan Assessment & Plan (1) Snoring: Code(s): R06.83 - Snoring Category: Medical (2) Sleep disturbance: Code(s): G47.9 - Sleep disorder, unspecified Category: Medical (3) Excessive daytime sleepiness: Code(s): G47.19 - Other hypersomnia Category: Medical (4) Restless leg syndrome: Code(s): G25.81 - Restless legs syndrome Category: Medical (5) Migraine without aura: Code(s): G43.009 - Migraine without aura, not intractable, without status migrainosus Category: Medical Qualifiers: Status migrainosus presence: without status migrainosus Intractability: not intractable Qualified Code(s): G43.009 - Migraine without aura, not intractable, without status migrainosus Plan For sleep, snoring, and restless leg symptoms: Reviewed 04/09/2025 HST results: Inconclusive AHI 4.1 per hour, O2 octavia 82% We will follow-up on referral for ENT (ears nose and throat) consult to evaluate for alternate snoring treatments. Fasting lab work-up- to assess for underlying etiologies Continue ropinirole 0.5 mg daily at bedtime. * Continue to monitor for compulsive behavior, discussed that her increased appetite maybe related to GI factors, but may also be augmented by ropinirole use. Continue to sleep with head elevated, could consider using a wedge pillow to support head elevation while asleep. You may benefit from reading ?navigating life with restless leg syndrome? by Dr. Thien Frias. For overall headache management: * Optimize good self-care, including but not limited to maintaining a healthy diet, adequate fluid intake, adequate sleep, and engaging in regular physical activity. * Track headaches, especially after any treatment regimen changes. Migraine [employer] is one of many headache tracking apps. * Information shared on non-pharmacological interventions which may help to alleviate headache attack burden. * Fasting lab work-up to assess for underlying etiologies in setting of hyperlipidemia For acute headache treatment: Is important to take acute medications at the first sign of headache, however it is advisable to avoid acute medication overuse (especially with combined headache medications). * She May continue Fioricet 1-2 tabs as needed onset of headache. Previous acute migraine medication trials: None other. Sumatriptan is on medication list- however patient has not likely try this yet. Acute migraine medication contraindications: Would avoid triptans or DHE pending further evaluation of hyperlipidemia. For headache prevention medication: Preventative medications should be taken routinely as prescribed for best effect, it may take several weeks for full effect to take effect. After completion of H pylori treatment, resume: * Riboflavin 400mg daily in the morning * Magnesium 400mg daily in at bedtime Continue amitriptyline 25 mg daily at bedtime-patient finds it helpful. Previous migraine prevention medication trials: None other Migraine prevention medication contraindications: None at this time Will follow-up upon review of above and patient to follow-up in clinic in 6 months or sooner prn. Coding Level of Care Code Est Pt Level 4 (82575) Diagnoses Snoring R06.83 Sleep disturbance G47.9 Excessive daytime sleepiness G47.19 Restless leg syndrome G25.81 Migraine without aura and without status migrainosus, not intractable G43.009 Status migrainosus presence: without status migrainosus Intractability: not intractable
[2025-07-10 11:37] VITALS: BP 120/60; PULSE 89; O2SAT 96; BMI 28.5
--- OUTSIDE RECORDS SUMMARY | 2025-07-10 14:43 | XMS_ITS | Patient Health Record ---
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
== END 2025-07-10 12:20 | disposition home or self-care (01) ==
LOC: HO.HSMS 11:29
PROVIDERS: PCP Internal Medicine; Visit Provider Nurse Practitioner Family
DX: R06.83 Snoring (principal); G47.9 Sleep disorder, unspecified; G47.19 Other hypersomnia; G25.81 Restless legs syndrome; G43.009 Migraine without aura, not intractable, without status migrainosus
CPT/HCPCS: 99214

== ENCOUNTER 2025-07-11 07:40 | Outpatient (AMB) | payer OTHER, SELFPAY ==
[2025-07-11 07:43] VITALS: BP 136/88; PULSE 78; O2SAT 98; BMI 27.9
--- NOTE | 2025-07-11 07:43 | A.OFFPC_ITS ---
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 Accompanied by: Self / Same As Patient Allergies codeine Allergy (Unknown, Verified 07/11/25 08:04) vomitting Medication List - Last Reconciled 07/11/25 by Nargis Sebastian MD alendronate 70 mg PO QWEEK amitriptyline 25 mg PO BEDTIME bismuth subsalicylate 2 tabs PO QID 14 days oyhtzpbryg-aywdwmhudngdz-jifw 50-325-40 mg 1 tab PO Q6H PRN 30 days calcium carbonate-vitamin D3 600 mg-25 mcg (1,000 unit) 1 cap PO BID 90 days ibuprofen 800 mg PO Q8H PRN 30 days magnesium oxide 400 mg PO BEDTIME 30 days metronidazole 500 mg PO TID 14 days omeprazole 20 mg PO DAILY ondansetron 4 mg PO Q8H PRN pantoprazole 20 mg PO BID 2 weeks riboflavin (vitamin B2) 400 mg PO DAILY 30 days ropinirole 0.5 mg PO BEDTIME sennosides (Senna Laxative) 8.6 mg PO BEDTIME PRN 30 days sumatriptan succinate 25 mg PO Q2-4H PRN 30 days tetracycline 500 mg PO Q6H 14 days Tobacco use date assessed: 10/09/24 Fall risk assessment: No Falls in past year Last assessed Fall Risk: 07/11/25 Dental Screening Dental Screen Date: 10/09/24 HPI HPI Comments History of Present Illness Details The patient is a 65-year-old female presenting for a follow-up visit for management of multiple chronic conditions and medication review. She has a history of a tubular adenoma polyp found on a colonoscopy last year, which was removed, with a recommendation for a follow-up in a couple of years. The patient is currently undergoing treatment for a Helicobacter pylori infection but reports poor adherence due to significant nausea and vomiting caused by the medication regimen, which includes metronidazole, omeprazole, and tetracycline. She also has a history of gastritis noted on a prior study and complains of constipation, for which she uses senna. The patient's history is significant for osteoporosis, for which she takes alendronate once a week and calcium with vitamin D. She also has migraines, which are managed with amitriptyline 25 mg at night for prophylaxis and sumatriptan for acute episodes. Other medications include ropinirole, vitamin B2, and ibuprofen as needed. Previous laboratory results showed slightly elevated cholesterol, and a repeat test is planned for August. The patient has a known allergy to codeine. [facility] Medical History Sleep disturbance Snoring Immunization history incomplete Physical exam Insomnia Restless leg syndrome Migraines Surgical History Hx of colonoscopy H/O abdominoplasty H/O: Family History Father Diabetes Mother Diabetes Hypertension Dementia Brother In good health Sister In good health Son In good health Daughter In good health Social History Household Members: Significant Other Housing: House Alcohol intake: current Alcohol intake frequency: holidays/special occasions only Alcohol type: beer Patient Tobacco Use Status: Former Tobacco user Tobacco use type: Cigarette e-Cigarette/Vaping Use: Never Used Second Hand Smoke Exposure: No service: No Current occupational status: 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: No Hearing needs: No Vision needs: Yes (Glasses) Questionnaire Thrive Questionnaire Date Thrive assessed: 07/04/25 I am a: Patient What is your living situation today?: I choose not to answer this question Within the past 12 months, did the food you bought not last and you didn't have the money to get more?: I choose not to answer this question Within the past 12 months, did you worry whether your food would run out before you got money to buy more?: I choose not to answer this question Do you have trouble paying for medicines?: I choose not to answer this question Do you have trouble getting transportation to medical appointments?: I choose not to answer this question Do you have trouble paying your heating and electricity bill?: I choose not to answer this question Do you have trouble taking care of your child, family member or friend?: I choose not to answer this question Do you have trouble with day-to-day activities such as bathing, preparing meals, shopping, managing finances, etc.?: I choose not to answer this question Are you currently unemployed and looking for a job?: I choose not to answer this question Are you interested in more education?: I choose not to answer this question Currently or been in a relationship where the following occur: I choose not to answer THRIVE Score: 0 AUDIT C Alcohol Use Questionnaire (AUDIT-C) 1. How often do you have a drink containing alcohol?: Never 3. How often do you have six or more drinks on one occasion?: Never Total Score: 0 Score Reviewed/Action Taken: No FRANCO-7 AMB Questionnaire FRANCO-7 Date FRANCO - 7 assessed: 10/09/24 Source: Developed by Drs. Enrrique Godinez, Lisbeth Dai, Matias Arciniega and colleagues, with an educational cande from [employer]. Review of Systems Const All systems reviewed & are unremarkable except as noted in HPI and below Card Denies chest pain at rest, Denies chest pain with activity, Denies edema, Denies irregular heart rhythm, Denies claudication, Denies dyspnea, Denies dyspnea on exertion, Denies orthopnea, Denies paroxysmal nocturnal dyspnea and Denies slow heart rate Resp Denies cough, Denies dyspnea and Denies dyspnea on exertion GI Denies abdominal pain, Denies change in bowel habits, Denies excessive flatus, Denies nausea and Denies vomiting Skin/Breast Denies bleeding lesions, Denies changing lesions and Denies rash Physical exam (Primary Care) Vital Signs: Last Vital Signs Pulse 78 07/11/25 07:43 BP 136/88 07/11/25 07:43 Pulse Ox 98 07/11/25 07:43 Oxygen Delivery Method Room Air 07/11/25 07:43 BMI result Body Mass Index 27.9 Tobacco/Smoking Status: Tobacco use Status Tobacco use date assessed 10/09/24 07/11/25 07:52 Patient Tobacco Use Status Former Tobacco user 07/11/25 07:52 Tobacco use type Cigarette 07/11/25 07:52 e-Cigarette/Vaping Use Never Used 07/11/25 07:52 Thrive Assessment: Date of Thrive Assessment Date Thrive assessed 07/04/25 07/11/25 07:52 Currently or been in a relationship where the following occur: I choose not to answer Resp Effort & Inspection: normal respiratory effort Auscultation: clear to auscultation bilaterally Cardio Jugular venous distension: no JVD Rate: regular rate Rhythm: regular rhythm Heart sounds: S1 normal heart sound present and S2 normal heart sound present Extrem General: Yes full ROM Office Procedures Flu Questionnaire Does the patient have a severe egg allergy?: No Does the patient have severe life threatening allergies?: No Does the patient have a fever or illness today?: No Has the patient ever had Guillain-Christiana Syndrome?: No Has the patient ever had any past reaction to a flu shot?: No Immunizations Fluarix [id number] (PF) 45 mcg (15 mcg x 3)/0.5 mL IM syringe Performing Provider: Nargis Sebastian MD Per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 mL IM Left Deltoid 0.5 mL [id number] 03/12/26 [id number] [employer] VIS Given Date VIS Provided VIS Publication Date 07/11/25 Single Vaccine 24 Eligibility Eligibility Date Funding Source Not [facility] Eligible 07/11/25 Private Coding Level of Care Code Est Pt Level 4 (13039) Complex EM visit Add On G2211 Diagnoses Age-related osteoporosis without current pathological fracture M81.0 Osteoporosis type: age-related Presence of current pathological fracture: without current pathological fracture HLD (hyperlipidemia) E78.5 Migraine without aura and without status migrainosus, not intractable G43.009 Intractability: not intractable Status migrainosus presence: without status migrainosus Gastritis K29.70 Chronic idiopathic constipation K59.04 Time Spent (min) 23 Assessment & Plan Assessment & Plan (1) Osteoporosis: Comment: DEXA 09/2024. AP spine -3.1, Left hip total -0.4, Left femur neck -1.7 Code(s): M81.0 - Age-related osteoporosis without current pathological fracture Category: Medical Qualifiers: Osteoporosis type: age-related Presence of current pathological f racture: without current pathological fracture Qualified Code(s): M81.0 - Age- related osteoporosis without current pathological fracture (2) HLD (hyperlipidemia): Code(s): E78.5 - Hyperlipidemia, unspecified Category: Medical (3) Migraine without aura: Code(s): G43.009 - Migraine without aura, not intractable, without status migrainosus Category: Medical Qualifiers: Intractability: not intractable Status migrainosus presence: without status migrainosus Qualified Code(s): G43.009 - Migraine without aura, not intractable, without status migrainosus (4) Gastritis: Code(s): K29.70 - Gastritis, unspecified, without bleeding Category: Medical (5) Chronic idiopathic constipation: Code(s): K59.04 - Chronic idiopathic constipation Category: Medical Plan Plan 1. Helicobacter Pylori Infection The patient is currently on a treatment regimen for H. pylori infection but is experiencing significant nausea and vomiting, which is affecting her adherence. The importance of eradicating the bacteria to reduce the risk of stomach cancer was emphasized. She has a follow-up appointment with gastroenterology scheduled for August 17. 2. Migraine The patient reports her migraines are well-managed with a prophylactic regimen of amitriptyline and sumatriptan for acute episodes. The plan is to continue the current medication regimen. 3. History Of Colonic Polyps The patient had a tubular adenoma removed during a colonoscopy last year. A surveillance colonoscopy is due in a couple of years. She will follow up with gastroenterology on August 17. 4. Osteoporosis The patient is being treated with alendronate once weekly and takes calcium with vitamin D. She will continue her current treatment. 5. Health Maintenance The patient's cholesterol was noted to be slightly high on previous labs; a repeat will be done in August. She is due for pneumonia and flu vaccinations, and the influenza vaccine will be administered today. She has several upcoming specialist appointments, including a sleep study on August 13, gastroenterology on August 17, and rheumatology in August or September, which she was advised to confirm. Orders: Orders Influenza [id number] Immunization Today Z23 - Encounter for immunization Lipid Panel Today E78.5 - Hyperlipidemia, unspecified Comprehensive [place]. Panel Fast Today E78.5 - Hyperlipidemia, unspecified Vitamin D 25-OH Total Today E55.9 - Vitamin D deficiency, unspecified Medications: Refilled calcium carbonate-vitamin D3 600 mg-25 mcg (1,000 unit) 1 cap PO BID 180 caps 1RF 90 days M81.0 - Age-related osteoporosis without current pathological fracture
--- OUTSIDE RECORDS SUMMARY | 2025-07-11 07:43 | XMS_ITS | Patient Health Record ---
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
== END 2025-07-11 11:02 | disposition home or self-care (01) ==
LOC: HO.HMCH 07:41
PROVIDERS: PCP Internal Medicine; Visit Provider Internal Medicine
DX: M81.0 Age-related osteoporosis without current pathological fracture (principal); E78.5 Hyperlipidemia, unspecified; G43.009 Migraine without aura, not intractable, without status migrainosus; K29.70 Gastritis, unspecified, without bleeding; K59.04 Chronic idiopathic constipation; Z23 Encounter for immunization

== ENCOUNTER → 2025-07-11 07:40 | Outpatient (BNVA) | payer OTHER, SELFPAY | PROVIDERS: PCP Internal Medicine; Visit Provider Internal Medicine | DX: M81.0 Age-related osteoporosis without current pathological fracture (principal); G43.009 Migraine without aura, not intractable, without status migrainosus; K29.70 Gastritis, unspecified, without bleeding; E78.5 Hyperlipidemia, unspecified; K59.04 Chronic idiopathic constipation; Z23 Encounter for immunization; Z79.899 Other long term (current) drug therapy | CPT/HCPCS: 90471; 90656 ==

== ENCOUNTER 2025-08-17 07:49 | Outpatient (AMB) | payer OTHER, SELFPAY ==
--- NOTE | 2025-08-17 08:16 | AM.OFFVISNUR ---
Intake Visit Reasons: h pylori Allergies codeine Allergy (Unknown, Verified 08/17/25 08:16) vomitting Nursing Note Patient presents for collection of?H Pylori?breath test. Patient has been fasting for 1 hour (nothing to eat, drink, no chewing gum or smoking) has not taken any antacid medication for at least 2 weeks and has no allergies to artificial sweeteners.?? <del>?</del> <del>?</del> <del>?</del> <del>?</del> <del>?</del> <del>?</del> <del>?</del> <del>?</del> <del>?</del> <del>?</del> <del>?</del> <del>?</del> <del>?</del> <del>?</del> <del>?</del> <del>?</del> <del>?</del> <del>?</del> <del>?</del> <del>?</del> <del>?</del> <del>?</del> <del>?</del> <del>?</del> <del>?</del> <del>?</del> <del>?</del> <del>?</del> <del>?</del> <del>?</del> <del>?</del> <del>?</del> <del>?</del> <del>?</del> <del>?</del> <del>?</del> <del>?</del> <del>?</del> <del>?</del> <del>?</del> <del>?</del> <del>?</del> <del>?</del> <del>?</del> <del>?</del> <del>?</del> <del>?</del> <del>?</del> <del>?</del> <del>?</del> <del>?</del> <del>?</del> <del>?</del> <del>?</del> <del>?</del> <del>?</del> <del>?</del> <del>?</del> <del>?</del> <del>?</del> <del>?</del> <del>?</del> <del>?</del> <del>?</del> <del>?</del> <del>?</del> <del>?</del> <del>?</del> <del>?</del> <del>?</del> <del>?</del> <del>?</del> <del>?</del> <del>?</del> <del>?</del> <del>??</del> Assessment & Plan Assessment & Plan (1) Chronic GERD: Code(s): K21.9 - Gastro-esophageal reflux disease without esophagitis Category: Medical Plan Patient presents for collection of?H Pylori?breath test. Patient has been fasting for 1 hour (nothing to eat, drink, no chewing gum or smoking) has not taken any antacid medication for at least 2 weeks and has no allergies to artificial sweeteners.???This test checks for an overgrowth of bacteria in your stomach. We all have bacteria but some may have more than others. It is treatable. if the test comes back negative there is nothing else to do. If the test result is positive we will treat you with 2 antibiotics and a medication to decrease the acid in your stomach (PPI) for 2 weeks. Two weeks after you have completed the treatment we will retest you to make sure the overgrowth has resolved. Patient Instructions: Process for specimen collection and reason for testing was explained to the patient. Specimen collection. Patient instructed to take a deep breath and then exhale into the blue bag, filling it up as much as possible. Patient instructed to drink a mixture of water and the artificial sweetener with a straw. A 15 minute wait period was observed. Patient instructed to take a deep breath and then exhale into the pink bag, filling it up as much as possible.?? <del>?</del> <del>?</del> <del>?</del> <del>?</del> <del>?</del> <del>?</del> <del>?</del> <del>?</del> <del>?</del> <del>?</del> <del>?</del> <del>?</del> <del>?</del> <del>?</del> <del>?</del> <del>?</del> <del>?</del> <del>?</del> <del>?</del> <del>?</del> <del>?</del> <del>?</del> <del>?</del> <del>?</del> <del>?</del> <del>?</del> <del>?</del> <del>?</del> <del>?</del> <del>?</del> <del>?</del> <del>?</del> <del>?</del> <del>?</del> <del>?</del> <del>?</del> <del>?</del> <del>?</del> <del>?</del> <del>?</del> <del>?</del> <del>?</del> <del>?</del> <del>?</del> <del>?</del> <del>?</del> <del>?</del> <del>?</del> <del>?</del> <del>?</del> <del>?</del> <del>?</del> <del>?</del> <del>?</del> <del>?</del> <del>?</del> <del>?</del> <del>?</del> <del>?</del> <del>?</del> <del>?</del> <del>?</del> <del>?</del> <del>?</del> <del>?</del> <del>?</del> <del>?</del> <del>?</del> <del>?</del> <del>?</del> <del>??</del> Coding Level of Care Code Established Pt Est Pt Level 1 (14981) Patient Type Established Diagnoses Chronic GERD K21.9
== END 2025-08-17 08:44 | disposition home or self-care (01) ==
LOC: HO.HGI 07:49
PROVIDERS: PCP Internal Medicine; Visit Provider Internal Medicine Gastroenterology
DX: K21.9 Gastro-esophageal reflux disease without esophagitis (principal)
CPT/HCPCS: 99499

== ENCOUNTER 2025-08-17 07:49 | Outpatient (REF) | payer OTHER, SELFPAY ==
--- OUTSIDE RECORDS SUMMARY | 2025-08-17 19:55 | XMS_ITS | Patient Health Record ---
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
== END 2025-08-17 07:50 | disposition home or self-care (01) ==
LOC: HO.LNP 07:49
PROVIDERS: PCP Internal Medicine; Visit Provider Internal Medicine Gastroenterology
DX: K21.9 Gastro-esophageal reflux disease without esophagitis (principal)
CPT/HCPCS: 83013

== ENCOUNTER 2025-08-31 08:56 | Outpatient (REF) | payer OTHER, SELFPAY ==
--- OUTSIDE RECORDS SUMMARY | 2025-08-31 09:17 | XMS_ITS | Patient Health Record ---
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
[2025-08-31 10:20] LABS: Alanine Aminotransferase 38 U/L (0-31); Albumin Level 4.5 g/dL (3.5-5.0); Alkaline Phosphatase 107 U/L (39-117); Anion Gap 12 (12-20); Aspartate Amino Transferase 26 U/L (5-31); Blood Urea Nitrogen 17 mg/dL (9-16); Calcium 9.4 mg/dL (8.4-10.2); Carbon Dioxide 26 mmol/L (22-29); Chloride 106 mmol/L (96-108); Estimated Glomerular Filt Rate > 60; Potassium 4.2 mmol/L (3.3-5.1); Sodium 140 mmol/L (135-145); Total Protein 7.7 g/dL (6.5-8.0)
== END 2025-08-31 08:57 | disposition home or self-care (01) ==
LOC: HO.LAB 08:56
PROVIDERS: Student in an Organized Health Care Education/Training Program; PCP Internal Medicine; Visit Provider Internal Medicine
DX: M81.0 Age-related osteoporosis without current pathological fracture (principal)
CPT/HCPCS: 36415; 80053; 82306